=== PATIENT | male | born 1960 | race Caucasian/White ===

== ENCOUNTER 2022-05-12 11:45 | Emergency (ER) | payer MEDICARE, SELFPAY ==
[2022-05-12] VITALS (7 sets, daily range): BP systolic 129–141; BP diastolic 80–86; PULSE 95–99; RESP 16–25; TEMP 35.9–36.1; O2SAT 97–100; BMI 17.3
--- NOTE | 2022-05-12 12:10 | VDLE_ITS ---
Reason For Study: Swelling RIGHT LEFT GSV is normal. GSV is normal. CFV is compressible, spontaneous, continuous, CFV is compressible, spontaneous, continuous, competent and demonstrates augmentation. competent and demonstrates augmentation. FV is compressible, spontaneous, continuous, FV is compressible, spontaneous, continuous, competent and demonstrates augmentation. competent and demonstrates augmentation. POP V is compressible, spontaneous, POP V is compressible, spontaneous, continuous, competent and demonstrates continuous, competent and demonstrates augmentation. augmentation. T/P Trunk is compressible. T/P Trunk is compressible. PTV is compressible. PTV is compressible. RT PerV is compressible. RT PerV is compressible. Procedure This is a venous duplex using B-mode, color flow and spectral Doppler. Exam performed portable in ED. The exam was diagnostic. A preliminary report was called and/or faxed to Dr. Scott. VL/Venous Duplex US - Jordin Extrem Interpretation Summary Deep veins of the bilateral lower extremities are patent and compressible segme ntally. There is no evidence of bilateral lower extremity deep vein thrombosis. The bilateral great saphenous veins appear patent and compressible segmentally. Ordering Physician: Eliane Scott Referring Physician: N/A Performed By: James Camarena, RVT
--- NOTE | 2022-05-12 12:13 | EX.ED.DYSGE1 ---
HPI History of Present Illness Chief Complaint: Edema Informant: patient and family Narrative Narrative: Patient is a 62-year-old male presenting from the [facility] for evaluation of leg edema. Patient has a complex medical history including combined systolic and diastolic heart failure, anemia, hypertension, Pancoast tumor of the upper lobe, urinary retention and respiratory failure on 2 L of oxygen. Patient had an extended hospital stay in March at the facility and then went to hospice. He seemed to actually be improving and was discharged from hospice to the [facility] for rehab. This was 1 week ago. For the past 2 to 3 days patient has had increased swelling of his feet. 2 days ago his legs were cold. He has developed a sore in his right heel that seems to be a pressure wound as well as a sore now at the base of the left great toe. Yesterday his left leg was tender and hot and his right leg was cool as ice. The nurse noticed the swelling today and thought he should come to the ER. Patient notes his coloring of his legs in the coolness is much better today. Patient was on Eliquis at 1 point but has had a lot of medication changes since transitioning off hospice and does not think he is on it anymore. Patient denies any breathing changes. He notes he has some mucus and a cough which is not significantly changed. He does feel that he needs puff of his albuterol inhaler. Patient does not wear any CPAP or BiPAP. No other complaints at this time. MAR reviewed from patient's nursing facility does not show any anticoagulation/Eliquis. [facility] Medical History Anemia Anxiety Cachexia COPD (chronic obstructive pulmonary disease) Hypertension Irregular heart rhythm Respiratory failure Transient ischemic attack Home Medications apixaban 5 mg tablet (Eliquis) 5 mg PO BID #60 tabs 05/12/22 [Rx Last Taken Unknown] furosemide 20 mg tablet (Lasix) 20 mg PO DAILY #7 tabs 05/12/22 [Rx Last Taken Unknown] prednisone 10 mg tablets in a dose pack 10 mg PO DAILY #48 tabs 05/12/22 [Rx Last Taken Unknown] Allergy/AdvReac Type Severity Reaction Status Date / Time Iodinated Contrast Media [CT] Allergy Shortness Verified 05/12/22 11:48 of breath Surgical History no surgical history Social History Smoking Status: Former smoker ROS ROS ED Constitutional Constitutional ED: Denies chills or fever(s) Eyes Eyes: Denies change in vision ENT ENT ED: Denies sore throat Cardiovascular Cardiovascular: Denies chest pain or palpitations Respiratory/Chest Respiratory/Chest: Reports cough; Denies dyspnea Gastrointestinal Gastrointestinal: Denies abdominal pain, nausea or vomiting Genitourinary Genitourinary ED: Reports other Details: ambrose catheter in place secondary to urinary retention Musculoskeletal Musculoskeletal: Denies arthralgias or myalgias Integumentary Reports other Details: wound to right heal and left great toe Neurologic Neurologic: Reports other Details: chronic weakness of the right hand ; Denies headache(s) or paresthesias Hematologic/Lymphatic Hematologic/Lymphatic: Denies easy bleeding or easy bruising EXAM Physical Exam Const Vital Signs: 05/12/22 11:48 05/12/22 11:52 05/12/22 11:59 Temperature 96.7 F L 96.7 F L Temperature Source Temporal Temporal Pulse Rate 98 98 Respiratory Rate 25 H 25 H Respiratory Effort Short of Breath Respiratory Pattern Normal Blood Pressure 141/86 H 141/86 H Blood Pressure Mean 104 104 Pulse Ox 100 99 Oxygen Delivery Method Nasal Cannula Nasal Cannula Oxygen Flow Rate (L/min) 3 2 05/12/22 12:26 05/12/22 13:00 05/12/22 13:00 Temperature 97.0 F L Temperature Source Temporal Pulse Rate 97 98 98 Respiratory Rate 22 H 21 H 20 H Respiratory Effort Respiratory Pattern Blood Pressure 129/80 H 129/80 H Blood Pressure Mean 96 96 Pulse Ox 97 97 Oxygen Delivery Method Nasal Cannula Nasal Cannula Oxygen Flow Rate (L/min) 2 2 05/12/22 14:00 05/12/22 14:30 05/12/22 15:37 Temperature 96.9 F L Temperature Source Temporal Pulse Rate 99 97 95 Respiratory Rate 22 H 21 H 16 Respiratory Effort Respiratory Pattern Blood Pressure 130/81 H 130/81 H 134/81 H Blood Pressure Mean 97 97 Pulse Ox 100 98 98 Oxygen Delivery Method Nasal Cannula Nasal Cannula Oxygen Flow Rate (L/min) 2 2 Positive cachectic General Appearance ED: cachectic and NAD Nutritional Appearance: cachectic HEENT Reports moist mucous membranes Eyes PERRL and EOMs intact bilaterally Neck supple and no JVD Chest Wall inspection of chest normal and palpation of chest normal Resp Resp Narrative: Mild tachypnea, wet cough. Coarse breath sounds Cardio regular rate, regular rhythm and no murmurs GI normal to inspection, nondistended, normoactive bowel sounds and non-tender Narrative: Ambrose catheter in place Extremity Extremity Narrative: 2+ bilateral pitting edema up to the distal shins 2+ bilateral DP and PT pulses. Brisk capillary refill of the toes. 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 Generalized weakness but no other focal deficits appreciated. Motor Exam: general weakness Psych mental status grossly normal Skin Skin Narrative: No mottling or cyanosis to the bilateral lower extremities. Mild plethora and warmth of the bilateral lower extremities. There is approximately 2 cm pressure sore to the right dependent heel with no associated drainage, bleeding or ulceration. There is a 1 cm slightly irregular black/ecchymotic wound to the base of the left great toe with again no ulceration, break in the skin or drainage. No surrounding erythema. No associated lymphangitic streaking. MDM MDM MDM Narrative Medical decision making narrative: Patient is evaluated for bilateral leg swelling. Apparently over the past few days has had intermittent episodes of coolness and warmth in his legs. He has great distal pulses however he does have pedal edema. I do not think he has an acute arterial occlusion. He does have what appears to be a pressure wound on his right heel as well as another questionably pressure wound versus vasculitis of the left great toe. I did review patient's discharge summary and some of his work-up from his hospitalization at [facility]. 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 I also reviewed patient's echocardiogram from 04/01 and patient had an improving echocardiogram that showed an EF of 40 to 45% with abnormal normal anterior septum, mid and apical inferior septum and apex abnormalities. Patient was seen by vascular and had normal ABIs. Patient was on Eliquis for history of DVT. I spoke with Dr. Kilgore, vascular surgery on-call. He felt that likely if anything this is microvascular and need follow-up with either rheumatology or hematology/oncology. [place] that restarting the patient on Eliquis for his history of DVT as well as restarting steroids would be prudent. He states his patient would not be a vascular candidate he would not intervene on the patient. While in the ER patient is given DuoNeb with improvement of his cough and lung sounds. Patient does not have any acute DVT but does have high venous return consistent with fluid overload. His BNP is elevated as well. Given that he is at his baseline O2 with no increased work of breathing or acute respiratory symptoms I do not think he requires admission for IV diuresis. Patient would like to go home. He is not having any chest pain. His EKG does show significant changes however based on documentation from clinic staying at [facility] it does not appear to be significantly changed. He is not having any chest pain and is high since he troponin is at the upper limit of normal. His kidney function is normal as well as his electrolytes and I will start diuresis for the patient for his lower extremity edema. Case is discussed with on-call physician for half-way, Dr. Briones who is agreeable with this plan. Patient is given prescription for Eliquis, prednisone taper and Lasix. Is amenable to being discharged back as his goal is to be rehabbed and does not want to be back in the hospital. Is given return precautions. Discharged home in stable condition. Lab Data Attestation: I reviewed the patient's lab results. Labs: Laboratory Results - last 24 hr 05/12/22 05/12/22 05/12/22 11:55 11:55 11:55 WBC 11.2 H RBC 4.22 L Hgb 12.8 L Hct 40.4 MCV 95.7 H MCH 30.3 MCHC 31.7 L RDW Std Deviation 61.7 H RDW Coeff of Maverick 18.2 H Plt Count 191 MPV 10.0 Immature Gran % (Auto) 4.400 H Neut % (Auto) 89.0 H Lymph % (Auto) 3.0 L [place] % (Auto) 3.0 Eos % (Auto) 0.0 Baso % (Auto) 0.6 Absolute Neuts (auto) 9.9 H Absolute Lymphs (auto) 0.34 L Nucleated RBC % 0.4 Differential Comment Toxic Granulation 1+ Stomatocytes 1+ Sodium 139 Potassium 4.0 Chloride 101 Carbon Dioxide 34.0 H Anion Gap 4 L BUN 38 H Creatinine 0.49 L Estim Creat Clear Calc 114.60 Est GFR (MDRD) Af Amer 222 Est GFR (MDRD) Non-Af 183 BUN/Creatinine Ratio 78.0 H Glucose 146 H Calcium 9.2 Troponin I High Sens B-Natriuretic Peptide 201.0 H 05/12/22 11:55 WBC RBC Hgb Hct MCV MCH MCHC RDW Std Deviation RDW Coeff of Maverick Plt Count MPV Immature Gran % (Auto) Neut % (Auto) Lymph % (Auto) [place] % (Auto) Eos % (Auto) Baso % (Auto) Absolute Neuts (auto) Absolute Lymphs (auto) Nucleated RBC % Differential Comment Toxic Granulation Stomatocytes Sodium Potassium Chloride Carbon Dioxide Anion Gap BUN Creatinine Estim Creat Clear Calc Est GFR (MDRD) Af Amer Est GFR (MDRD) Non-Af BUN/Creatinine Ratio Glucose Calcium Troponin I High Sens 78 B-Natriuretic Peptide Radiography Chest X-Ray - ED: 1 View, Read by ED Physician, Read by Radiologist and - (Prominence of central pulmonary arteries) Diagnostic Testing: Clinical Impression(s) from Imaging Studies Venous Doppler Study 05/12/22 12:10 Interpretation Summary Deep veins of the bilateral lower extremities are patent and compressible segmentally. There is no evidence of bilateral lower extremity deep vein thrombosis. The bilateral great saphenous veins appear patent and compressible segmentally. Ordering Physician: Eliane Scott Referring Physician: N/A Performed By: James Camarena, RVT Chest X-Ray 05/12/22 12:15 IMPRESSION: The lungs are clear. Prominence of the central pulmonary arteries. Electronically Signed: Pedro Cummins MD at 12:27 EST , Rhythm Strip Rhythm Strip: Sinus Rhythm Rate: 96 Ectopy: None EKG Initial EKG: Attestation: I personally reviewed and interpreted this EKG as follows: Interpretation: Sinus Rhythm Comments: Normal sinus rhythm at a rate of 96 bpm Normal axis Which is criteria for LVH T wave inversions in 2, 1, aVL, V3 through V6 with no reciprocal changes Prior EKG tracings: available for review Prior: Changed Discharge Plan Triage Chief Complaint: Edema ED Provider: Eliane Scott Dx/Rx/DC Orders Clinical Impression: Peripheral edema, Fluid overload, Vasculitis, History of deep vein thrombosis Instructions: ED Peripheral Edema, Bilateral Prescriptions: New Eliquis 5 mg tablet 5 mg PO BID Qty: 60 0RF prednisone 10 mg tablets,dose pack 10 mg PO DAILY Qty: 48 0RF furosemide [Lasix] 20 mg tablet 20 mg PO DAILY Qty: 7 0RF Primary Care Provider: Maurizio Olivas Referrals: Ronal Infante DPM [Med Staff - Active Staff] - 2 Days for wound check Maurizio Castillo MD [Med Staff - Active Staff] - As soon as possible Maurizio Olivas MD [Primary Care Provider] - Activity Restrictions/Additional Instructions: Replaced knee back on Eliquis. You do not have a blood clot today. You are being put on a taper course of prednisone for potential vasculitis in your legs. You have also been referred to podiatry for your feet. I have given you referral for cardiology to follow-up with and I have started you on Lasix as I suspect you have a component of fluid overload causing your leg swelling. Please follow-up with your certified court/medical interpreter/oncologist for further recommendations. Disposition Disposition: Home, Self Care
--- NOTE | 2022-05-12 12:15 | RAD_ITS ---
STUDY: X-RAY CHEST REASON FOR EXAM: Male, 62 years old. Increasing swelling to the lower extremities. TECHNIQUE: Single AP portable view of the chest. COMPARISON: None. FINDINGS: EKG electrodes are seen. Mildly elevated right hemidiaphragm. There is no demonstrated pleural abnormality. Normal size heart. Normal mediastinum and george. There is prominence of the pulmonary hilar arteries without peripheral pulmonary vascular congestion, suggesting pulmonary hypertension. Normal visualized aortic arch and descending thoracic aorta. Normal visualized thoracic spine. Normal visualized ribs, clavicles, and shoulders. There is no demonstrated abnormality of the visualized soft tissue structures of the upper abdomen. RAD/Chest 1 View (Portable) IMPRESSION: The lungs are clear. Prominence of the central pulmonary arteries. Electronically Signed: Pedro Cummins MD at 12:27 [facility] ,
[2022-05-12] MEDS: Ipratropium/Albuterol Sulfate 3 ML AMPUL.NEB INHALATION (12:21)
[2022-05-12 12:36] LABS: Absolute Lymphocyte Count 0.34 X10^3/uL (0.83-4.51); Absolute Neutrophil Count 9.9 X10^3/uL (2.0-7.7); Basophil# 0.07 X10^3/uL; Basophil% 0.6 % (0-1); Hematocrit 40.4 % (40-54); Hemoglobin 12.8 g/dL (13.0-16.5); Lymphocyte # 0.34 X10^3/ul (0.83-4.51); Mean Corp Hgb Conc 31.7 g/dL (32-36); Mean Corpuscular Hgb 30.3 pg (27.0-32.0); Mean Corpuscular Volume 95.7 fL (80-94); Monocyte# 0.34 X10^3/uL; NRBC Flagged by Analyzer 0.4 % (0-5); Neutrophil # 9.94 X10^3/uL (2.7-7.7); POSITIVE DIFFERENTIAL YES; Platelet Count 191 K/mm3 (150-450); RBC Distribution Width CV 18.2 % (11.6-14.6); RBC Distribution Width SD 61.7 fl (35.1-43.9); Red Blood Count 4.22 M/mm3 (4.6-6.2); White Blood Count 11.2 K/mm3 (4.4-11.0)
[2022-05-12 12:44] LABS: Anion Gap 4 (5-15); BUN 38 mg/dL (7-18); Calcium,Total 9.2 mg/dL (8.5-10.1); Chloride 101 mmol/L (98-107); Creatinine, Serum 0.49 mg/dL (0.70-1.30); EST Glomerular Filtration Rate 183 mL/min (>60); Est Glom Filt Rate - Afr Amer 222 mL/min (>60); Glucose 146 mg/dL (74-106); Sodium Level 139 mmol/L (136-145)
[2022-05-12 12:50] LABS: Differential Indicated SCAN CRITERIA MET
[2022-05-12 12:59] LABS: Stomatocyte 1+; Toxic Granulation 1+
[2022-05-12 13:43] LABS: Troponin-I HS 78 pg/mL (3.0-78.0)
[2022-05-12] MEDS: Furosemide 20 MG/2 ML VIAL IV (15:35)
--- NOTE | 2022-05-12 16:58 | ED.RN ---
PHONE REPORT TO THE AVENUE WAS ATTEMPTED BUT NO ANSWER BY THE NURSE THERE @[id number]
--- NOTE | 2022-05-12 17:46 | ED.RN ---
NURSE TO NURSE REPORT GIVEN TO RN AT THE AVENUE.
== END 2022-05-12 17:47 | disposition home or self-care (01) ==
PROVIDERS: Emergency Provider Emergency Medicine; PCP Family Medicine; Visit Provider Emergency Medicine
DX: M79.89 Other specified soft tissue disorders (principal); I50.40 Unspecified combined systolic (congestive) and diastolic (congestive) heart failure; I77.6 Arteritis, unspecified; Z87.891 Personal history of nicotine dependence; Z86.718 Personal history of other venous thrombosis and embolism
CPT/HCPCS: 71045; 80048; 83880; 84484; 85025; 93005; 93970; 94640; 96374; 99285; A4216; J1940

== ENCOUNTER 2022-05-14 16:28 | Inpatient (IN) | payer MEDICARE, SELFPAY ==
[2022-05-14] VITALS (12 sets, daily range): BP systolic 148–162; BP diastolic 88–130; PULSE 106–131; RESP 17–30; TEMP 36.2–36.9; O2SAT 91–100; BMI 16.1; BMI 15.7
--- NOTE | 2022-05-14 17:01 | EKG12_ITS ---
Test Reason : SOB Blood Pressure : / mmHG Vent. Rate : 130 BPM Atrial Rate : 130 BPM P-R Int : 148 ms QRS Dur : 076 ms QT Int : 388 ms P-R-T Axes : 072 -23 088 degrees QTc Int : 571 ms Sinus tachycardia T wave abnormality, consider lateral ischemia Abnormal ECG Confirmed by BONNIE JOHN, YUMI ([id number]), electronic news gathering editor JENNI NOVAK ([id number]) on 05/17/2022 9:22:17 AM Referred By: HARRISON/DAVID Confirmed By:YUMI NICOLE MD
--- NOTE | 2022-05-14 17:02 | ED.VIS.DYS ---
HPI History of Present Illness Chief Complaint: Shortness of Breath Informant: patient and family Narrative Narrative: History is from patient and family. However, family seems to have a much more accurate history. This patient arrives today due to dyspnea. He has had problems with dyspnea off and on for a while. He has COPD, emphysema, congestive heart failure, Pancoast tumor/lung cancer. He states he was here the other day for some swelling in the legs. They started him on Lasix and the swelling is a little bit better. It is certainly not worse but it is slightly better. He states the breathing is little worse today. He is breathing fast and his heart rates up. He does have a cough over the last 2 days that is now developed. He is not really able to get any sputum up but he feels like he is coughing some. He is not sure if he is wheezing. He is not having chest pain. He is on and is taking his Eliquis twice a day. He is also on Lasix and prednisone. This patient first denied any blood clots but then stated he may have had in his right arm in the past. He is also had the Pancoast tumor diagnosed about 7 years ago. It was evidently lung in origin. He had multiple radiation and chemotherapy treatments. 6 years after initial diagnosis or about a year ago he had repeat treatments. He has now been on Keytruda for about 70 some treatments. It is nonoperable. Patient was up at [facility] and then transferred to [facility]. This happened in March. He evidently arrested and coded twice and was intubated. He had to be reintubated. He slowly improved slightly. But he was on hospice care from the end of March until about the 18th of this month. He was transferred from hospice care to the [facility] for rehab. He is off hospice care now. He is also on 2 L of oxygen all the time. He is satting well on that now. [facility] Medical History (Updated 05/14/22 @ 19:[address] Georgina Alexander MD) Anemia Anxiety and depression Chronic respiratory failure with hypoxia Combined systolic and diastolic heart failure COPD (chronic obstructive pulmonary disease) Former tobacco use History of deep vein thrombosis HLD (hyperlipidemia) Hypertension Irregular heart rhythm Pancoast tumor of right lung Severe protein-calorie malnutrition Transient ischemic attack Home Medications apixaban 5 mg tablet (Eliquis) 5 mg PO BID #60 tabs 05/12/22 [Rx Last Taken Unknown] furosemide 20 mg tablet (Lasix) 20 mg PO DAILY #7 tabs 05/12/22 [Rx Last Taken Unknown] prednisone 10 mg tablets in a dose pack 10 mg PO DAILY #48 tabs 05/12/22 [Rx Last Taken Unknown] Allergy/AdvReac Type Severity Reaction Status Date / Time Iodinated Contrast Media [CT] Allergy Shortness Verified 05/12/22 11:48 of breath Family History (Updated 05/14/22 @ 20:[address] Georgina Alexander MD) Mother Anxiety and depression Hypertension Father Hypertension Surgical History (Updated 05/14/22 @ 20:[address] Georgina Alexander MD) No history of previous surgery Social History (Updated 05/14/22 @ 20:[address] Georgina Alexander MD) housing: long-term Smoking Status: Former smoker how long ago did patient quit smoking: Quit with prolonged recent hospitalization 03/2022, smoked teen 1 ppd. alcohol intake: never substance use type: does not use ROS ROS ED Constitutional Constitutional ED: Denies chills or fever(s) Eyes Eyes: Denies change in vision ENT ENT ED: Denies rhinorrhea or sore throat Cardiovascular Cardiovascular: Reports racing heartbeat; Denies chest pain or palpitations Respiratory/Chest Respiratory/Chest: Reports cough, dyspnea and sputum Gastrointestinal Gastrointestinal: Denies nausea or vomiting Genitourinary Genitourinary ED: Denies dysuria Musculoskeletal Musculoskeletal: Denies myalgias Integumentary Denies rash Neurologic Neurologic: Denies headache(s) Psychiatric Psychiatric: Reports anxiety Endocrine Endocrinology: Denies polydipsia or polyuria Hematologic/Lymphatic Hematologic/Lymphatic: Reports easy bleeding and easy bruising; Denies lymphadenopathy Allergic/Immunologic Allergic/Immunologic ED: Reports other Details: Patient does report significant reaction to iodinated contrast agents. He states he almost the second time he got this. He gets significant dyspnea. ; Denies urticaria EXAM Physical Exam Narrative Exam Narrative: Patient is awake and alert. He is breathing quickly but is not in acute distress. He also has increased heart rate. He is obviously cachectic. But he is oriented and not at all sleepy or lethargic HEENT: Very cachectic. No noted pallor. Mucous membranes are reasonably moist Eyes show no pallor Neck possible some mild JVD. Very thin. No meningismus. Lungs decreased breath sounds throughout. It is hard to say if there is actual wheeze or just decreased breath sounds. I do not hear definitive rales or rhonchi either but he is overall quiet. There is no pain with a deep breath. He does have a slightly moist sounding cough that is intermittent. Heart is tachycardic. It does appear to be regular though on the monitor. I saw a rare PVC. Abdomen: Soft and nontender Extremities patient does have some duskiness of his fingers and toes. Evidently this is not new though this has been going on for quite some time and is thought to be secondary to microvascular disease. Mild peripheral edema but family states it might be a little better than a couple days ago. He has no CVA or back tenderness. Very prominent spinal processes and ribs going along with his cachectic Neuro: Patient is awake alert. He is a reasonably good informant but not for dates times and details of the events since March because he was intubated or in the hospital for much of that. Const Vital Signs: 05/14/22 16:30 05/14/22 16:36 05/14/22 16:36 Temperature 97.7 F L 97.1 F L Temperature Source Temporal Temporal Pulse Rate 131 H 127 H 127 H Respiratory Rate 23 H 29 H 23 H Respiratory Effort Respiratory Pattern Blood Pressure 148/88 H 148/88 H Blood Pressure Mean 108 108 Pulse Ox 100 100 Oxygen Delivery Method Room Air Nasal Cannula Nasal Cannula Oxygen Flow Rate (L/min) 2 2 05/14/22 16:37 05/14/22 17:29 05/14/22 18:00 Temperature Temperature Source Pulse Rate 120 H 114 H Respiratory Rate 30 H 19 H Respiratory Effort Short of Breath Labored Respiratory Pattern Tachypnea Blood Pressure 150/94 H Blood Pressure Mean 112 Pulse Ox 100 Oxygen Delivery Method Nasal Cannula Nasal Cannula Oxygen Flow Rate (L/min) 2 2 05/14/22 18:00 05/14/22 19:00 05/14/22 19:00 Temperature 97.3 F L 98.3 F Temperature Source Temporal Temporal Pulse Rate 113 H 106 H 107 H Respiratory Rate 23 H 17 22 H Respiratory Effort Respiratory Pattern Blood Pressure 150/94 H 152/107 H 152/107 H Blood Pressure Mean 112 122 122 Pulse Ox 100 94 94 Oxygen Delivery Method Nasal Cannula Nasal Cannula Room Air Oxygen Flow Rate (L/min) 2 05/14/22 19:38 Temperature 98.2 F Temperature Source Temporal Pulse Rate 118 H Respiratory Rate 18 Respiratory Effort Respiratory Pattern Blood Pressure 162/130 H Blood Pressure Mean 140 Pulse Ox 97 Oxygen Delivery Method Nasal Cannula Oxygen Flow Rate (L/min) MDM MDM MDM Narrative Medical decision making narrative: My independent interpretation of the patient's single view chest x-ray shows scarring up of the right upper base consistent with his Pancoast tumor but no acute infiltrative processes noted. Similar reading by radiology. Blood work does not show elevated white count. Hemoglobin is good. Platelets are normal. Electrolytes show no marked abnormality. Bicarb is 33 which is similar to past. He does have an elevated BUN to creatinine ratio. I do not want to give him a large amount of fluids because he has a history of CHF and is on Lasix. Troponin is up at 100. His EKG does not show acute ST elevation changes. This troponin elevation is likely due to a combination of tachycardia and hypoxia. Lactate was elevated at 4. Again, this is likely due to increased heart rate and decreased oxygen level. He is not hypotensive. I do not think he needs IV fluids for sepsis as he has CHF and this may hurt him. BNP was up at 350 but this is not a marked elevation considering the overall picture. Patient's rechecked and he is doing better with breathing treatments. He is actually moving a fair amount more air now. His heart rate has gone from the 130s and even 140s down to about 10 5-1 10. His respiratory rate is down a little bit. He is now satting okay on room air and not needing oxygen. I will give him another breathing treatment. He requested something for anxiety as he does have a lot of this. I will give him a very small dose of Ativan as we discussed that this can also suppress respirations a little bit but it may also help calm his breathing. I am not can to do a CTA at this time. He is on Eliquis and he has a significant allergy to contrast. With his continued slight increase heart rate, respiratory rate, elevated lactate and complex medical history I think he will require hospitalization. I have hospitalist on page. I did discuss the case specifically with the hospitalist. Patient will be admitted. Lab Data Attestation: I reviewed the patient's lab results. Labs: Laboratory Results - last 24 hr 05/14/22 05/14/2205/14/23 16:35 16:35 16:35 WBC 10.1 RBC 5.04 Hgb 15.2 Hct 47.7 MCV 94.6 H MCH 30.2 MCHC 31.9 L RDW Std Deviation 61.1 H RDW Coeff of Maverick 18.4 H Plt Count 217 MPV 10.2 Immature Gran % (Auto) 3.700 H Neut % (Auto) 88.8 H Lymph % (Auto) 4.[address] % (Auto) 2.5 Eos % (Auto) 0.0 Baso % (Auto) 0.8 Absolute Neuts (auto) 9.0 H Absolute Lymphs (auto) 0.42 L Nucleated RBC % 0.6 Differential Comment SCANNED Sodium 140 Potassium 3.8 Chloride 96 L Carbon Dioxide 33.0 H Anion Gap 11 BUN 41 H Creatinine 0.80 Estim Creat Clear Calc 65.44 Est GFR (MDRD) Af Amer 125 Est GFR (MDRD) Non-Af 103 BUN/Creatinine Ratio 51.2 H Glucose 266 H Lactic Acid Cancelled Calcium 9.4 Phosphorus Magnesium Troponin I High Sens 100 H B-Natriuretic Peptide Procalcitonin 05/14/22 05/14/22 05/14/22 16:35 17:40 17:40 WBC RBC Hgb Hct MCV MCH MCHC RDW Std Deviation RDW Coeff of Maverick Plt Count MPV Immature Gran % (Auto) Neut % (Auto) Lymph % (Auto) [place] % (Auto) Eos % (Auto) Baso % (Auto) Absolute Neuts (auto) Absolute Lymphs (auto) Nucleated RBC % Differential Comment Sodium Potassium Chloride Carbon Dioxide Anion Gap BUN Creatinine Estim Creat Clear Calc Est GFR (MDRD) Af Amer Est GFR (MDRD) Non-Af BUN/Creatinine Ratio Glucose Lactic Acid Calcium Phosphorus 3.3 Magnesium 2.3 Troponin I High Sens B-Natriuretic Peptide 353.1 H Procalcitonin 0.12 H 05/14/22 18:15 WBC RBC Hgb Hct MCV MCH MCHC RDW Std Deviation RDW Coeff of Maverick Plt Count MPV Immature Gran % (Auto) Neut % (Auto) Lymph % (Auto) [place] % (Auto) Eos % (Auto) Baso % (Auto) Absolute Neuts (auto) Absolute Lymphs (auto) Nucleated RBC % Differential Comment Sodium Potassium Chloride Carbon Dioxide Anion Gap BUN Creatinine Estim Creat Clear Calc Est GFR (MDRD) Af Amer Est GFR (MDRD) Non-Af BUN/Creatinine Ratio Glucose Lactic Acid 4.0 H* Calcium Phosphorus Magnesium Troponin I High Sens B-Natriuretic Peptide Procalcitonin Radiography Diagnostic Testing: Clinical Impression(s) from Imaging Studies Chest X-Ray 05/14/22 17:43 IMPRESSION: No radiographic evidence of acute cardiopulmonary disease. Electronically Signed: Pinky Ortega MD at 18:02 EST Reading Location ID and State: [id number] / Tel , Service support , EKG Initial EKG: Comments: My independent interpretation of the patient's EKG done for tachycardia and dyspnea shows sinus rhythm with tachycardic rate at 130. There are diffuse ST and T wave changes and variable baseline but no convincing evidence of infarct or ischemia. Baseline variation in rate does limit evaluation. HI interval and QRS duration are normal. QTC is long. Critical Care Time Critical Care Time: Yes Critical care time (excluding procedures): 30-74 minutes, Discussing w/Patient &/or Family/Technical Professional, Discussing w/Consultants, Arranging Admission or Transfer, Performing Direct Patient Care at Bedside and - (35 Minutes, Patient tachypneic, tachycardic, hypoxic off oxygen, improved with multiple treatments and recheck) Discharge Plan Dx/Rx/DC Orders Clinical Impression: Acute exacerbation of chronic obstructive pulmonary disease, Tachycardia, Tachypnea, Hypoxia, Elevated troponin Disposition Disposition: Acute Care Hospital [facility] Discharge Date/Time: 05/14/22 20:57
[2022-05-14] MEDS: MethylPREDNISolone 125 MG/2 ML Vial IV (17:12)
[2022-05-14] MEDS: Ipratropium/Albuterol Sulfate 3 ML AMPUL.NEB INHALATION ×2 (17:27→19:28)
[2022-05-14 17:32] LABS: Absolute Lymphocyte Count 0.42 X10^3/uL (0.83-4.51); Basophil# 0.08 X10^3/uL; Basophil% 0.8 % (0-1); Hematocrit 47.7 % (40-54); Hemoglobin 15.2 g/dL (13.0-16.5); Lymphocyte # 0.42 X10^3/ul (0.83-4.51); Lymphocyte % 4.2 % (19-41); Mean Corp Hgb Conc 31.9 g/dL (32-36); Mean Corpuscular Hgb 30.2 pg (27.0-32.0); Mean Corpuscular Volume 94.6 fL (80-94); Mean Platelet Vol. 10.2 fl (6.2-12.0); Monocyte# 0.25 X10^3/uL; Monocyte% 2.5 % (0-10); NRBC Flagged by Analyzer 0.6 % (0-5); Neutrophil # 8.96 X10^3/uL (2.7-7.7); Neutrophil % 88.8 % (47-70); POSITIVE DIFFERENTIAL YES; Platelet Count 217 K/mm3 (150-450); RBC Distribution Width CV 18.4 % (11.6-14.6); RBC Distribution Width SD 61.1 fl (35.1-43.9); Red Blood Count 5.04 M/mm3 (4.6-6.2); White Blood Count 10.1 K/mm3 (4.4-11.0)
[2022-05-14 17:33] LABS: Differential Indicated SCAN CRITERIA MET
--- NOTE | 2022-05-14 17:43 | RAD_ITS ---
INDICATION: SOB EXAMINATION/TECHNIQUE: X-RAY - XR Chest 1 View COMPARISON: 05/12/2022. FINDINGS: LINES/DEVICES: None. LUNGS: No consolidation, edema or effusion. No pneumothorax. MEDIASTINUM AND CARDIOVASCULAR STRUCTURES: Cardiac silhouette not enlarged. Central airways and mediastinal contour are unremarkable. BONES AND SOFT TISSUES: Unremarkable. RAD/Chest 1 View (Portable) IMPRESSION: No radiographic evidence of acute cardiopulmonary disease. Electronically Signed: Pinky Ortega MD at 18:02 EST Reading Location ID and State: [id number] / Tel , Service support ,
[2022-05-14 17:50] LABS: Differential Comment SCANNED
[2022-05-14 17:56] LABS: Anion Gap 11 (5-15); BUN 41 mg/dL (7-18); BUN/Creat Ratio 51.2 RATIO (10-20); Calcium,Total 9.4 mg/dL (8.5-10.1); Chloride 96 mmol/L (98-107); EST Glomerular Filtration Rate 103 mL/min (>60); Est Glom Filt Rate - Afr Amer 125 mL/min (>60); Estimated Creatinine Clearance 65.44 ml/min; Glucose 266 mg/dL (74-106); Potassium 3.8 mmol/L (3.5-5.1); Sodium Level 140 mmol/L (136-145); Troponin-I HS 100 pg/mL (3.0-78.0)
[2022-05-14 18:01] LABS: BNP,B-Type NATRIURETIC PEPTIDE 353.1 pg/mL (0-100)
[2022-05-14] MEDS: Albuterol 2.5 MG/3 ML VIAL.NEB. INHALATION (18:20)
--- NOTE | 2022-05-14 19:22 | CPS ---
[1820] x1 Albuterol given to pt. Pre-Tx: HR = 109, RR = 26 with diminished, coarse breath sounds. Post-Tx: HR = 111, RR = 24 with cleared up, coarse breath sounds.
--- NOTE | 2022-05-14 19:43 | CPS ---
[1928] x1 Duoneb given to pt. Pre-Tx: HR = 113, RR = 28 with coarse and diminished breath sounds. Post-Tx: HR = 114, RR = 24 with clearer breath sounds and rhonchi through out.
[2022-05-14] MEDS: LORazepam 2 MG/ML Syringe 0.25 MG IV (19:44)
[2022-05-14 20:12] LABS: Magnesium 2.3 mg/dL (1.6-2.6); Phosphorus 3.3 mg/dL (2.5-4.9)
[2022-05-14 20:21] LABS: Procalcitonin 0.12 ng/mL (0.00-0.09)
--- NOTE | 2022-05-14 21:01 | PCM.HP.STD ---
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 ED on 05/14/22 with history of progressively worsening dyspnea over this has been an issue ongoing for some time with worsened dyspnea over the last 24 hours with increased cough without ability to bring up sputum without fever or chills. In the emergency room he does report that his lower extremity swelling has improved since his recent ED evaluation with ongoing oral Lasix administration. He does state that part of the reason he transition off hospice as he was improving enough that they wanted to have therapy performed but this was not allowed when he was in an inpatient hospice setting which prompted the transfer to a skilled facility. Work-up in the ED included T97.7, heart rate initially 131, respiratory rate 23, percent on 2 L nasal cannula with most recent vital signs T98.3, heart rate 107, BP 152/107, respiratory rate 22, 94% on 2 L nasal cannula, CBC with WC 10.1, he 115.2, platelet 217 with left shift and lymphopenia, BMP with chloride 96, carbon oxide 33, BUN/creat 41/0.8, glucose 266, lactic acid 4, troponin initial 100, BNP 353.1, chest x-ray with no acute cardiopulmonary findings, blood culture x2 pending per ED, rapid SARS COVID and influenza antigens negative. In the ED patient administered Solu-Medrol 125 mg IV x1, Ativan 0.25 mg IV x1, DuoNeb therapies as well as albuterol.s [facility] Medical History (Updated 05/14/22 @ 19:[address] Georgina Alexander MD) Anemia Anxiety and depression Chronic respiratory failure with hypoxia Combined systolic and diastolic heart failure COPD (chronic obstructive pulmonary disease) Former tobacco use History of deep vein thrombosis HLD (hyperlipidemia) Hypertension Irregular heart rhythm Pancoast tumor of right lung Severe protein-calorie malnutrition Transient ischemic attack Home Medications apixaban 5 mg tablet (Eliquis) 5 mg PO BID #60 tabs 05/12/22 [Rx Last Taken Unknown] furosemide 20 mg tablet (Lasix) 20 mg PO DAILY #7 tabs 05/12/22 [Rx Last Taken Unknown] prednisone 10 mg tablets in a dose pack 10 mg PO DAILY #48 tabs 05/12/22 [Rx Last Taken Unknown] Allergy/AdvReac Type Severity Reaction Status Date / Time Iodinated Contrast Media [CT] Allergy Shortness Verified 05/12/22 11:48 of breath Family History (Updated 05/14/22 @ 20:[address] Georgina Alexander MD) Mother Anxiety and depression Hypertension Father Hypertension Surgical History (Updated 05/14/22 @ 20:[address] Georgina Alexander MD) No history of previous surgery Social History (Updated 05/14/22 @ 20:[address] Georgina Alexander MD) housing: skilled nursing Smoking Status: Former smoker how long ago did patient quit smoking: Quit with prolonged recent hospitalization 03/2022, smoked teen 1 ppd. alcohol intake: never substance use type: does not use ROS ROS Narrative Admission Review of Systems: CONSTITUTIONAL: No weight loss, fever, chills, + weakness or fatigue. HEENT: + Mild congestion. Eyes: No visual loss, blurred vision, double vision or yellow sclerae. Ears, Nose, Throat: No hearing loss, sneezing, runny nose or sore throat. SKIN: No rash or itching, lesions, wounds. CARDIOVASCULAR: + Edema. No chest pain, chest pressure or chest discomfort, palpitations, orthopnea, syncopal events. RESPIRATORY: + shortness of breath, cough with difficulty bringing up his sputum, wheezing, No hemoptysis. GASTROINTESTINAL:+ anorexia, No nausea, vomiting or diarrhea, abdominal pain, melena, BRBPR. GENITOURINARY: + Chronic urinary retention. No dysuria, frequency, urgency. NEUROLOGICAL: No headache, dizziness, syncope, paralysis, ataxia, numbness or tingling in the extremities, focal weakness, change in bowel or bladder control, seizure. MUSCULOSKELETAL: + muscle, back pain, joint pain or stiffness. HEMATOLOGIC: + anemia, bleeding or bruising. LYMPHATICS: No enlarged nodes. No history of splenectomy. PSYCHIATRIC: No history of depression or anxiety. ENDOCRINOLOGIC: No reports of sweating, cold or heat intolerance. No polyuria or polydipsia. ALLERGIES: No history of asthma, hives, eczema or rhinitis. Vital Signs Vital Signs Vital Signs: 05/14/22 16:30 05/14/22 16:36 05/14/22 16:36 Temperature 97.7 F L 97.1 F L Temperature Source Temporal Temporal Pulse Rate 131 H 127 H 127 H Respiratory Rate 23 H 29 H 23 H Respiratory Effort Respiratory Pattern Blood Pressure 148/88 H 148/88 H Blood Pressure Mean 108 108 Pulse Ox 100 100 Oxygen Delivery Method Room Air Nasal Cannula Nasal Cannula Oxygen Flow Rate (L/min) 2 2 05/14/22 16:37 05/14/22 17:29 05/14/22 18:00 Temperature Temperature Source Pulse Rate 120 H 114 H Respiratory Rate 30 H 19 H Respiratory Effort Short of Breath Labored Respiratory Pattern Tachypnea Blood Pressure 150/94 H Blood Pressure Mean 112 Pulse Ox 100 Oxygen Delivery Method Nasal Cannula Nasal Cannula Oxygen Flow Rate (L/min) 2 2 05/14/22 18:00 05/14/22 19:00 05/14/22 19:00 Temperature 97.3 F L 98.3 F Temperature Source Temporal Temporal Pulse Rate 113 H 106 H 107 H Respiratory Rate 23 H 17 22 H Respiratory Effort Respiratory Pattern Blood Pressure 150/94 H 152/107 H 152/107 H Blood Pressure Mean 112 122 122 Pulse Ox 100 94 94 Oxygen Delivery Method Nasal Cannula Nasal Cannula Room Air Oxygen Flow Rate (L/min) 2 Weight Weight: 109 lb 5.588 oz Body Mass Index (BMI) 16.1 Physical Exam Narrative Physical Examination: General: Awake, alert, oriented x 3 and cooperative, seated upright in ED bed, frail, fatigued appearing, no evidence of any respiratory distress, improved since initial ED arrival. Skin: Normal color, normal turgor, no icterus, no cyanosis except significant very staged ecchymoses, bilateral lower extremity peripheral venous stasis skin changes. HEENT: AT/NC, EOMI, PERRLA, moderately dry MM, no carotid bruits or JVD noted. Lungs: Severely diminished, greater bases, occasional end expiratory wheeze, no evidence of any distress, mildly increased respiratory rate but improving from prior, no rales or rhonchi. Heart: Mildly tachycardic with regular rhythm; no gallop, rub audible. Abdomen: Soft, cachectic appearing, NTTP, ND, distant normal BS, no HSM. Extremities: No cyanosis, no clubbing, bilateral pedal 1+ pitting edema to distal peter. Neurological: Patient awake, alert, oriented as noted cognitive function intact; pupils equally reactive to light and accommodation, cranial nerves II-XII grossly normal, moving all 4 extremities, no focal deficits, strength moderately to severely global decrease secondary to acute presentation and underlying comorbidities. Psychiatric: Affect appears flat, fatigued, respiratory status improved, no acute evidence of depressive or anxiety feelings. Results Lab / Micro Data Result Diagrams: 05/14/22 16:35 05/14/22 16:35 Labs: Laboratory Results - last 24 hr 05/14/22 16:35: WBC 10.1, RBC 5.04, Hgb 15.2, Hct 47.7, MCV 94.6 H, MCH 30.2, MCHC 31.9 L, RDW Std Deviation 61.1 H, RDW Coeff of Maverick 18.4 H, Plt Count 217, MPV 10.2, Immature Gran % (Auto) 3.700 H, Neut % (Auto) 88.8 H, Lymph % (Auto) 4.2 L, [place] % (Auto) 2.5, Eos % (Auto) 0.0, Baso % (Auto) 0.8, Absolute Neuts (auto) 9.0 H, Absolute Lymphs (auto) 0.42 L, Nucleated RBC % 0.6, Differential Comment SCANNED 05/14/22 16:35: Sodium 140, Potassium 3.8, Chloride 96 L, Carbon Dioxide 33.0 H, Anion Gap 11, BUN 41 H, Creatinine 0.80, Estim Creat Clear Calc 65.44, Est GFR (MDRD) Af Amer 125, Est GFR (MDRD) Non-Af 103, BUN/Creatinine Ratio 51.2 H, Glucose 266 H, Calcium 9.4, Troponin I High Sens 100 H 05/14/22 16:35: Lactic Acid Cancelled 05/14/22 16:35: B-Natriuretic Peptide 353.1 H 05/14/22 18:15: Lactic Acid 4.0 H* Micro: Microbiology 05/14/22 17:15 Nasal Secretion SARS-CoV-2 & FLU Antigen (Rapid) - Final Radiology Impression Chest X-Ray 05/14/22 17:43 IMPRESSION: No radiographic evidence of acute cardiopulmonary disease. Electronically Signed: Pinky Ortega MD at 18:02 EST Reading Location ID and State: [id number] / Tel , Service support , Assessment & Plan Assessment/Plan (1) Acute exacerbation of chronic obstructive pulmonary disease: PLAN: Plan The patient is a 62 y/o M w/ PMHx: Combined Diastolic/Systolic CHF, Pancoast Tumor Lung (reported right upper lobe) on Ketruda non-operable unclear specific type s/p prior chemotherapy and radiation, Chronic urinary retention, Chronic anemia, Severe protein calorie malnutrition, COPD w/ Chronic Hypoxic Respiratory Failure (2L NC), Anxiety and Dpression, HTN, Hx TIA, Hx VTE on eliquis, Former tobacco use who presents to the [facility] ED on 05/14/22 with history of progressively worsening dyspnea over this has been an issue ongoing for some time with worsened dyspnea over the last 24 hours with increased cough without ability to bring up sputum without fever or chills. #1. Acute on Chronic Hypoxic Respiratory Failure secondary to Acute on chronic COPD exacerbation w/ associated lactic acidosis suspected primarily secondary to hypoxemia: Will admit to [facility], maintain on oxygen with wean as tolerated to home oxygen supplementation, continue ATC duonebs, PRN albuterol, IV methylprednisolone, HOB, IS parameters, will obtain sputum cultures, respiratory full panel and procalcitonin. Will hold on immediate abx therapy but reasses if results more concerning for bacterial etiology. #2. Hyperglycemia, possibly stress response: Admission glucose 266, no diabetic history but patient is on chronic steroids, will obtain hemoglobin A1c and if appropriate transition to ADA diet with Accu-Cheks with insulin sliding scale and request nutrition consultation for education and teaching. #3. Chronic Diastolic/Systolic CHF: From review of ED evaluation 05/10/2022 patient with prolonged hospital stay at in March with transition to hospice at that time however he recently supposedly improved and was discharged from hospice but had significant increased orthopnea, edema, weight gain with ED evaluation with initiation of increased Lasix regimen, will continue Eliquis, Lasix regimen with snug Darren wraps and lower extremity elevations with pulse dose Lasix as needed, not on beta-jeny nor DARREN inhibitor/ARB, nor on statin therapy, defer to outpatient and again patient had been on hospice, unclear if transitioning back given possible decline. #4. Pancoast Tumor Lung (reported right upper lobe): Patient remains on Ketruda, noted to be non-operable unclear specific type but location as noted, s/p prior chemotherapy and radiation and from history suspect recurrent worsening disease over the last year, encourage continued Oncology follow-up. Mag, Phos pending. #5. Chronic anemia, appears macrocytic: Admission hemoglobin 15.2 however 05/12/22 with hemoglobin 12.8 at that time with MCV 95.7, not on any supplements, will obtain iron panel, ferritin, vitamin B12 and folic acid in addition to guaiac to be cautious given chronic anticoagulation status. #6. Hypertension: Continue home regimen including Lasix with hold parameters as needed, PRN hydralazine. #7. Severe protein calorie malnutrition: Evidenced by significantly reduced BMI, muscle and fat loss, nutrition consulted. #8. History TIA: We will continue patient home Eliquis, hypertensive regimen as noted, investigating diabetic potential as noted with hyperglycemia, not on statin therapy, defer to outpatient. #9. Anxiety and depression: Not on any regimen, encourage continued outpatient follow-up and evaluation. #10. History of VTE: We will continue patient on chronic Eliquis regimen. #11. DVT prophylaxis: SCDs, Eliquis. #12. CODE status: Patient JEFE is his mother and brother who are present and living will is currently in place. Discussed CODE status at length including difference between FULL code, DNR-CCA and DNR-CC status. Following discussions about the differences in these status, requested DNR-CCA with allowance of short term intubation only. Advanced Care Planning Face to Face Time: 17 minutes. Admission Evaluation Time spent evaluating chart, patient history, patient evaluation, care planning and discussion with specialists: 75 minutes. Charges/Coding Visit Charges Inpatient E&M: 17351 Init Hosp L3 Procedures Hospitalists Procedures: 34957 Advncd Care Plan 30 Min
--- NOTE | 2022-05-14 21:30 | NURSING ---
emergency documentation effective since 05/14/2022 @5733
[2022-05-14 22:16] LABS: Reflex Lactate? Y
[2022-05-14 22:30] LABS: Allen Test Positive; Base Excess 8 mmol/L (-2 to +2); Bicarbonate 31.1 mmol/L (22-26); Blood Gas Specimen Type ART; O2 Delivery Device Cannula; PO2 78 mmHG (75-100); SITE L Radial; SO2 96 % (95-99); Total Carbon Dioxide 32 mmol/L; pCO2 40.6 mmHg (35-45); pH 7.49 (7.35-7.45)
[2022-05-14 23:05] LABS: Lactic Acid 3.3 mmol/L (0.4-1.9)
[2022-05-14] MEDS: 0.9% Saline Lock 10 ML Syringe IV (23:14)
[2022-05-15] VITALS (27 sets, daily range): BP systolic 107–181; BP diastolic 86–129; PULSE 99–128; RESP 16–29; TEMP 36.4–36.9; O2SAT 95–100
[2022-05-15 00:26] LABS: Troponin-I HS 83 pg/mL (3.0-78.0)
[2022-05-15 01:00] LABS: Bedside Glucose 135 mg/dL (74-106)
[2022-05-15 02:41] LABS: Troponin-I HS 81 pg/mL (3.0-78.0)
[2022-05-15] MEDS: Ipratropium/Albuterol Sulfate 3 ML AMPUL.NEB INHALATION ×5 (02:44→19:16)
[2022-05-15] MEDS: 0.9% Saline Lock 10 ML Syringe IV ×3 (05:41→20:59)
[2022-05-15 05:48] LABS: Absolute Lymphocyte Count 0.37 X10^3/uL (0.83-4.51); Absolute Neutrophil Count 11.1 X10^3/uL (2.0-7.7); Basophil# 0.06 X10^3/uL; Basophil% 0.5 % (0-1); Hematocrit 45.1 % (40-54); Hemoglobin 15.1 g/dL (13.0-16.5); Lymphocyte # 0.37 X10^3/ul (0.83-4.51); Lymphocyte % 3.1 % (19-41); Mean Corp Hgb Conc 33.5 g/dL (32-36); Mean Corpuscular Hgb 30.9 pg (27.0-32.0); Mean Corpuscular Volume 92.4 fL (80-94); Mean Platelet Vol. 9.7 fl (6.2-12.0); Monocyte# 0.19 X10^3/uL; Monocyte% 1.6 % (0-10); NRBC Flagged by Analyzer 0.3 % (0-5); Neutrophil # 11.09 X10^3/uL (2.7-7.7); Neutrophil % 92.9 % (47-70); POSITIVE DIFFERENTIAL YES; Platelet Count 178 K/mm3 (150-450); RBC Distribution Width CV 18.5 % (11.6-14.6); RBC Distribution Width SD 58.4 fl (35.1-43.9); Red Blood Count 4.88 M/mm3 (4.6-6.2); White Blood Count 11.9 K/mm3 (4.4-11.0)
[2022-05-15 05:51] LABS: Differential Indicated SCAN CRITERIA MET
[2022-05-15 06:08] LABS: Differential Comment SCANNED
[2022-05-15 06:19] LABS: ALB/GLOB Ratio 0.7 RATIO (0.9-2.4); AST(SGOT) 20 U/L (15-37); Alanine Aminotransfer ALT/SGPT 53 U/L (16-61); Albumin, Serum 2.8 g/dL (3.2-5.0); Alkaline Phosphatase 117 U/L (45-117); Anion Gap 10 (5-15); BUN 36 mg/dL (7-18); BUN/Creat Ratio 64.3 RATIO (10-20); Calcium,Total 9.2 mg/dL (8.5-10.1); Chloride 98 mmol/L (98-107); Creatinine, Serum 0.56 mg/dL (0.70-1.30); EST Glomerular Filtration Rate 156 mL/min (>60); Est Glom Filt Rate - Afr Amer 189 mL/min (>60); Estimated Creatinine Clearance 90.85 ml/min; Globulin 3.9 g/dL (2.2-4.2); Glucose 153 mg/dL (74-106); Potassium 4.1 mmol/L (3.5-5.1); Protein, Total 6.7 g/dL (6.4-8.2); Sodium Level 140 mmol/L (136-145); Troponin-I HS 75 pg/mL (3.0-78.0)
[2022-05-15 06:33] LABS: Ferritin 504 ng/mL (26-388); Iron 103 ug/dL (65-175); Iron Binding Capacity,Total 393 ug/dL (250-450); PERCENT IRON SATURATION 26.2 % (15.0-55.0)
[2022-05-15] MEDS: hydrALAZINE 20 MG/ML Vial 10 MG IV ×2 (06:51→18:25)
[2022-05-15 07:17] LABS: Hemoglobin A1c 6.4 % (3.8-5.6)
--- NOTE | 2022-05-15 07:50 | PCM.PN.HOSP ---
Subjective Subjective Patient is a 62-year-old gentleman admitted with shortness of breath and assessment of COPD with acute exacerbation made admitted to a monitored bed for further management Objective Data Objective Data Vital Signs: Vital Signs Temp Pulse Resp BP Pulse Ox O2 Del Method O2 Flow Rate 97.9 F 116 H 25 H 160/89 H 97 Room Air 2 05/15/22 05:00 05/15/22 07:32 05/15/22 07:32 05/15/22 07:32 05/15/22 07:32 05/15/22 07:32 05/15/22 00:25 Oxygen Flow Rate (L/min) 2 Oxygen Delivery Method Room Air Weight: 48.2 kg Body Mass Index (BMI) 15.7 Intake & Output: Intake and Output for Last 24 Hours 05/13/22 05/14/22 05/15/22 23:59 23:59 23:59 Output Total 500 / 500 150 / 150 Balance -500 / -500 -150 / -150 Lab / Micro Data Result Diagrams: 05/15/22 05:25 05/15/22 05:25 Labs: Laboratory Results - last 24 hr 05/14/22 16:35: WBC 10.1, RBC 5.04, Hgb 15.2, Hct 47.7, MCV 94.6 H, MCH 30.2, MCHC 31.9 L, RDW Std Deviation 61.1 H, RDW Coeff of Maverick 18.4 H, Plt Count 217, MPV 10.2, Immature Gran % (Auto) 3.700 H, Neut % (Auto) 88.8 H, Lymph % (Auto) 4.2 L, [place] % (Auto) 2.5, Eos % (Auto) 0.0, Baso % (Auto) 0.8, Absolute Neuts (auto) 9.0 H, Absolute Lymphs (auto) 0.42 L, Nucleated RBC % 0.6, Differential Comment SCANNED 05/14/22 16:35: Sodium 140, Potassium 3.8, Chloride 96 L, Carbon Dioxide 33.0 H, Anion Gap 11, BUN 41 H, Creatinine 0.80, Estim Creat Clear Calc 65.44, Est GFR (MDRD) Af Amer 125, Est GFR (MDRD) Non-Af 103, BUN/Creatinine Ratio 51.2 H, Glucose 266 H, Calcium 9.4, Troponin I High Sens 100 H 05/14/22 16:35: Lactic Acid Cancelled 05/14/22 16:35: B-Natriuretic Peptide 353.1 H 05/14/22 17:40: Phosphorus 3.3, Magnesium 2.3 05/14/22 17:40: Procalcitonin 0.12 H 05/14/22 18:15: Lactic Acid 4.0 H* 05/14/22 21:33: POC Glucose 135 H 05/14/22 22:26: Lactic Acid 3.3 H* 05/14/22 23:50: Troponin I High Sens 83 H 05/15/22 02:18: Troponin I High Sens 81 H 05/15/22 05:25: WBC 11.9 H, RBC 4.88, Hgb 15.1, Hct 45.1, MCV 92.4, MCH 30.9, MCHC 33.5 D, RDW Std Deviation 58.4 H, RDW Coeff of Maverick 18.5 H, Plt Count 178, MPV 9.7, Immature Gran % (Auto) 1.900 H, Neut % (Auto) 92.9 H, Lymph % (Auto) 3.1 L, [place] % (Auto) 1.6, Eos % (Auto) 0.0, Baso % (Auto) 0.5, Absolute Neuts (auto) 11.1 H, Absolute Lymphs (auto) 0.37 L, Nucleated RBC % 0.3, Differential Comment SCANNED 05/15/22 05:25: Sodium 140, Potassium 4.1, Chloride 98, Carbon Dioxide 32.0, Anion Gap 10, BUN 36 H, Creatinine 0.56 L, Estim Creat Clear Calc 90.85, Est GFR (MDRD) Af Amer 189, Est GFR (MDRD) Non-Af 156, BUN/Creatinine Ratio 64.3 H, Glucose 153 H, Calcium 9.2, Total Bilirubin 0.40, AST 20, ALT 53, Alkaline Phosphatase 117, Troponin I High Sens 75, Total Protein 6.7, Albumin 2.8 L, Globulin 3.9, Albumin/Globulin Ratio 0.7 L 05/15/22 05:25: Hemoglobin A1c 6.4 H 05/15/22 05:25: Iron 103, TIBC 393, Iron Saturation 26.2, Ferritin 504 H, Folate 17.80 Micro: Microbiology 05/14/22 20:10 Mucosa - Nasopharyngeal Respiratory Panel (PCR) - Final 05/14/22 17:15 Nasal Secretion SARS-CoV-2 & FLU Antigen (Rapid) - Final ABG Data ABG results: ABG 05/14/22 22:26 Specimen Type ART Sample Site L Radial pH 7.49 H Bicarbonate Actual 31.1 H Total CO2 32 Base Excess 8 H O2 Saturation 96 ABG pCO2 40.6 ABG pO2 78 Johnnie Test Positive O2 Delivery Device Cannula Liter Flow 2.0 Radiography Diagnostic Testing: Radiology Impression Chest X-Ray 05/14/22 17:43 IMPRESSION: No radiographic evidence of acute cardiopulmonary disease. Electronically Signed: Pinky Ortega MD at 18:02 EST Reading Location ID and State: [id number] / Tel , Service support , Physical Exam Narrative GENERAL: cooperative but frail looking HEENT: Atraumatic; normocephalic EYES; Anicteric, Normal Conjunctiva NECK; supple, normal thyroid, RESPIRATORY: Diminished to auscultation CARDIOVASCULAR: Regular S1 S2, GI: soft, normoactive bowel sounds, : No Renal angle tenderness; EXTREMITIES: No edema, no clubbing, MUSCULOSKELETAL: no muscle wasting NEURO: Awake; no lateralizing signs. SKIN: No Rash PSYCH; Flat affect Assessment & Plan Assessment/Plan (1) Acute exacerbation of chronic obstructive pulmonary disease: PLAN: Plan Patient is a 62-year-old gentleman admitted with progressive shortness of breath 1. Acute acute hypoxia ? Superimposed on chronic respiratory failure multifactorial including COPD with acute exacerbation as well as patient underlying Pancoast lung tumor 8 CHF with acute exacerbation. Placed on supplemental oxygen admitted to a monitored bed with treatment of underlying condition 2. COPD with acute exacerbation - Patient started on bronchodilator treatment, systemic steroid as well as antibiotic therapy. Patient placed on oxygen titrated to keep saturation greater than 90. 3. Acute on chronic congestive heart failure with preserved ejection fraction ? Patient is on diuretics, in addition to fluid restriction and strict input and output as well as daily weight 4. Right upper lobe Pancoast tumor ? Patient is apparently completed treatment with chemo and is currently on Keytruda. 5. Anemia - Secondary to chronic disorder monitoring H&H and transfuse if patient becomes symptomatic or hemoglobin falls below 7 6. History of VTE ? Patient is on Eliquis did continue 7. Hypertension - Blood pressure controlled, home medications continued with dose adjustment as needed 8. Severe protein calorie . This is secondary to patient underlying lung malignancy patient severe protein calorie malnutrition evidenced by low energy level significant weight loss low BMI of 15. Consult has been placed to nutrition 9. Depression with anxiety ? Did continue patient SSRI 10. DVT prophylaxis ? Patient already on Eliquis Time spent in the patient's overall evaluation,decision-making process, review of diagnostic data, adjustment of management, discussion with other providers, nursing nursing and ancillary staff involved in patient's care documentation, 52 minutes Charges/Coding Visit Charges Inpatient E&M: 58518 [facility] Hosp L3
[2022-05-15] MEDS: Furosemide 20 MG Tablet PO (09:25)
[2022-05-15] MEDS: Acetaminophen 325 MG Tablet 650 MG PO ×2 (09:25→14:32)
[2022-05-15] MEDS: APIXABAN 5 MG TABLET PO ×2 (09:25→20:58)
[2022-05-15] MEDS: oxyCODONE 5 MG Tablet 20 MG PO ×3 (09:43→22:17)
[2022-05-15] MEDS: NYSTATIN 500,000 UNIT/5 ML UDC 500000 UNIT PO ×3 (13:11→20:58)
[2022-05-15] MEDS: Pantoprazole Sodium 40 MG Tablet PO (13:11)
[2022-05-15] MEDS: Losartan Potassium 25 MG Tablet PO (13:11)
[2022-05-15] MEDS: Carvedilol 3.125 MG TABLET PO ×2 (13:11→22:17)
--- NOTE | 2022-05-15 13:21 | CASEMGMT ---
MARCEL Note MARCEL met with patient. He indicated that his discharge plan is to [facility]. Cassie SCHAFFER
--- NOTE | 2022-05-15 14:18 | CASEMGMT ---
Addendum entered by Cassie Gonzalez 05/15/22 14:48: Green sheet on the chart. Original Note: MARCEL Note MARCEL called [facility] and spoke to outpatient receptionist who put this insurance writer to Krissy on A unit. MARCEL asked if patient could return to [facility] under his insurance. Krissy said that she had no idea. MARCEL asked if there was anyone that she could call to see if patient could return and Krissy said that there is nobody in the building she can ask and she thinks it's the part timer who handles this but she is unsure. MARCEL spoke to Dank electric sign assembler. Possible discharge of patient this weekend. MARCEL spoke to Ritu. Ritu from [facility] said that patient can return anytime. He does not need precert. Cassie SCHAFFER
[2022-05-15] MEDS: Escitalopram Oxalate 20 MG Tablet PO (14:32)
[2022-05-15] MEDS: DULoxetine Hcl 60 MG Capsule PO (14:32)
[2022-05-15] MEDS: Juven (unflavored) Packet 1 PACKET PO (16:00)
[2022-05-15] MEDS: Ensure Plus High Protein 120 ML LIQUID PO (16:02)
[2022-05-15] MEDS: Senna/Docusate Sodium 1 Tablet 2 TABLET PO (18:53)
--- NOTE | 2022-05-15 19:55 | PCM.HOSP.N ---
Hospitalist Note Ongoing tachycardia, suspect related with his breathing treatments. Will transition to scheduled budesonide with PRN albuterol only. Lopressor x 1 now and continue his home coreg.
[2022-05-15] MEDS: Metoprolol Tartrate 5 MG/5 ML Vial IV (20:59)
[2022-05-15] MEDS: Calcium Carbonate 500 MG Tablet 1000 MG PO (20:59)
[2022-05-16 03:40] VITALS: BP 160/82; PULSE 100; RESP 18; TEMP 36.8; O2SAT 96
[2022-05-16] MEDS: 0.9% Saline Lock 10 ML Syringe IV ×2 (05:32→20:50)
[2022-05-16] MEDS: oxyCODONE 5 MG Tablet 20 MG PO ×3 (05:32→20:50)
[2022-05-16] MEDS: Budesonide Respules 0.5 MG/2 ML AMPUL.NEB. INHALATION ×2 (06:34→19:42)
[2022-05-16 06:35] VITALS: PULSE 95; RESP 18; O2SAT 98
[2022-05-16 09:40] VITALS: BP 162/94; PULSE 116; RESP 16; TEMP 36.7; O2SAT 97
[2022-05-16] MEDS: Escitalopram Oxalate 20 MG Tablet PO (10:01)
[2022-05-16] MEDS: APIXABAN 5 MG TABLET PO ×2 (10:01→20:50)
[2022-05-16] MEDS: NYSTATIN 500,000 UNIT/5 ML UDC 500000 UNIT PO ×4 (10:01→20:49)
[2022-05-16] MEDS: DULoxetine Hcl 60 MG Capsule PO (10:01)
[2022-05-16] MEDS: Juven (unflavored) Packet 1 PACKET PO ×2 (10:01→17:47)
[2022-05-16] MEDS: Losartan Potassium 25 MG Tablet PO ×2 (10:01→13:18)
[2022-05-16] MEDS: Aspirin 81 MG TAB.CHEW PO (10:01)
[2022-05-16] MEDS: Furosemide 20 MG Tablet PO (10:01)
[2022-05-16] MEDS: Carvedilol 3.125 MG TABLET PO ×2 (10:01→13:18)
[2022-05-16] MEDS: Pantoprazole Sodium 40 MG Tablet PO (10:02)
--- NOTE | 2022-05-16 10:07 | PCM.PN.HOSP ---
Subjective Subjective Patient seen continues to improve clinically. Currently off oxygen heart rate however remains elevated at 116, blood pressure 162/94 Objective Data Objective Data Vital Signs: Vital Signs Temp Pulse Resp BP Pulse Ox O2 Del Method O2 Flow Rate 98.0 F 116 H 16 162/94 H 97 Room Air 2 05/16/22 09:40 05/16/22 09:40 05/16/22 09:40 05/16/22 09:40 05/16/22 09:40 05/16/22 09:40 05/15/22 22:00 Oxygen Flow Rate (L/min) 2 Oxygen Delivery Method Room Air Weight: 49.3 kg Body Mass Index (BMI) 15.7 Intake & Output: Intake and Output for Last 24 Hours 05/14/22 05/15/22 05/16/22 23:59 23:59 23:59 Intake Total 100 / 100 200 / 200 Output Total 500 / 500 1550 / 1550 350 / 350 Balance -500 / -500 -1450 / -1450 -150 / -150 Medical Nutrition Assessment Dietitian: Malnutrition Criteria Met Start: 05/15/22 13:52 Freq: Status: Active Protocol: Document 05/15/22 13:52 RMA (Rec: 05/15/22 13:52 RMA [id number]) Nutrition Malnutrition Evidence of Malnutrition Exists Yes Malnutrition (severe): Chronic Evidenced By Suboptimal Energy Intake ( Severe),Weight Loss (Severe), Physical Changes (Severe) Intake Problem Inadequate Energy Intake Etiology related to increased energy expenditure and inadequate oral intake Signs/Symptoms as evidenced by unintentional wt loss greater than 20% x 1 year Status Active Problem Clinical Problem Chronic Disease or Condition Related Malnutrition Etiology Severe protein-calorie malnutrition in the context of chronic disease and debility related to increased energy expenditure and inadequate energy intake Signs/Symptoms as evidenced by 21% wt loss x 1 year, BMI 15.9, severe muscle/fat loss and wasting in the clavicle, arms, orbital region and PO meeting less than 50% estimated nutrition needs x 6 months Status Active Problem Recommendation Dietitian Recommendations/Changes Continue liberalized regular diet and monitor need to restrict salt/sodium due to edema/CHF. Will add 120 ml chocolate ensure plus high protein TID w / meals. Will add Parrish BID w/ medpass for wound healing. Will add 120 ml ensure plus high protein TID w/ medpass. Additional ONS as pt willing. Lab / Micro Data Result Diagrams: 05/15/22 05:25 05/15/22 05:25 Micro: Microbiology 05/14/22 20:10 Mucosa - Nasopharyngeal Respiratory Panel (PCR) - Final 05/14/22 17:15 Nasal Secretion SARS-CoV-2 & FLU Antigen (Rapid) - Final Physical Exam Narrative GENERAL: cooperative but frail looking HEENT: Atraumatic; normocephalic EYES; Anicteric, Normal Conjunctiva NECK; supple, normal thyroid, RESPIRATORY: Diminished to auscultation CARDIOVASCULAR: Regular S1 S2, GI: soft, normoactive bowel sounds, : No Renal angle tenderness; EXTREMITIES: No edema, no clubbing, MUSCULOSKELETAL: no muscle wasting NEURO: Awake; no lateralizing signs. SKIN: No Rash PSYCH; Flat affect Assessment & Plan Assessment/Plan (1) Acute exacerbation of chronic obstructive pulmonary disease: PLAN: Plan Patient is a 62-year-old gentleman admitted with progressive shortness of breath 1. Acute acute hypoxia ? Superimposed on chronic respiratory failure multifactorial including COPD with acute exacerbation as well as patient underlying Pancoast lung tumor 8 CHF with acute exacerbation. Placed on supplemental oxygen admitted to a monitored bed with treatment of underlying condition ? 05/16/2022; patient breathing status markedly improved currently off oxygen 2. COPD with acute exacerbation - Patient started on bronchodilator treatment, systemic steroid as well as antibiotic therapy. Patient placed on oxygen titrated to keep saturation greater than 90. 3. Acute on chronic congestive heart failure with preserved ejection fraction ? Patient is on diuretics, in addition to fluid restriction and strict input and output as well as daily weight 4. Right upper lobe Pancoast tumor ? Patient is apparently completed treatment with chemo and is currently on Keytruda. 5. Anemia - Secondary to chronic disorder monitoring H&H and transfuse if patient becomes symptomatic or hemoglobin falls below 7 6. History of VTE ? Patient is on Eliquis did continue 7. Hypertension - Blood pressure controlled, home medications continued with dose adjustment as needed ? 05/16/2022; blood pressure control not optimal subsequent adjustment made to patient antihypertensive regimen 8. Severe protein calorie . This is secondary to patient underlying lung malignancy patient severe protein calorie malnutrition evidenced by low energy level significant weight loss low BMI of 15. Consult has been placed to nutrition 9. Depression with anxiety ? Did continue patient SSRI 10. DVT prophylaxis ? Patient already on Eliquis Time spent in the patient's overall evaluation,decision-making process, review of diagnostic data, adjustment of management, discussion with other providers, nursing nursing and ancillary staff involved in patient's care documentation, 38 minutes Charges/Coding Visit Charges Inpatient E&M: 90910 Subs Hosp L2
[2022-05-16 15:00] VITALS: BP 139/71; PULSE 103; RESP 18; TEMP 36.9; O2SAT 99
[2022-05-16 19:43] VITALS: PULSE 105; RESP 20
[2022-05-16] MEDS: Carvedilol 6.25 MG Tablet PO (20:50)
[2022-05-16 21:00] VITALS: BP 130/70; PULSE 108; RESP 18; TEMP 36.4; O2SAT 94
[2022-05-17] MEDS: oxyCODONE 5 MG Tablet 20 MG PO ×3 (02:57→17:50)
[2022-05-17 03:00] VITALS: BP 140/78; PULSE 98; RESP 18; TEMP 36.6; O2SAT 94
[2022-05-17] MEDS: 0.9% Saline Lock 10 ML Syringe IV (05:25)
[2022-05-17 06:53] VITALS: PULSE 100; RESP 20; O2SAT 99
[2022-05-17] MEDS: Budesonide Respules 0.5 MG/2 ML AMPUL.NEB. INHALATION (06:53)
[2022-05-17 07:53] LABS: Vitamin B12 1138 pg/mL (211-911)
--- NOTE | 2022-05-17 08:25 | PCM.PN.HOSP ---
Subjective Subjective f/u aecopd Breathing improving, still very weak and would like to go back [facility] on discharge Objective Data Objective Data Vital Signs: Vital Signs Temp Pulse Resp BP Pulse Ox O2 Del Method O2 Flow Rate 98 F 98 18 140/78 H 94 Nasal Cannula 2 05/17/22 03:00 05/17/22 03:00 05/17/22 03:00 05/17/22 03:00 05/17/22 03:00 05/17/22 03:00 05/17/22 03:00 Oxygen Flow Rate (L/min) 2 Oxygen Delivery Method Nasal Cannula Weight: 49.3 kg Body Mass Index (BMI) 15.7 Intake & Output: Intake and Output for Last 24 Hours 05/15/22 05/16/22 05/17/22 23:59 23:59 23:59 Intake Total 100 / 100 200 / 620 420 / 420 Output Total 1550 / 1550 1325 / 1925 1100 / 1100 Balance -1450 / -1450 -1125 / -1305 -680 / -680 Medical Nutrition Assessment Dietitian: Malnutrition Criteria Met Start: 05/15/22 13:52 Freq: Status: Active Protocol: Document 05/15/22 13:52 RMA (Rec: 05/15/22 13:52 RMA [id number]) Nutrition Malnutrition Evidence of Malnutrition Exists Yes Malnutrition (severe): Chronic Evidenced By Suboptimal Energy Intake ( Severe),Weight Loss (Severe), Physical Changes (Severe) Intake Problem Inadequate Energy Intake Etiology related to increased energy expenditure and inadequate oral intake Signs/Symptoms as evidenced by unintentional wt loss greater than 20% x 1 year Status Active Problem Clinical Problem Chronic Disease or Condition Related Malnutrition Etiology Severe protein-calorie malnutrition in the context of chronic disease and debility related to increased energy expenditure and inadequate energy intake Signs/Symptoms as evidenced by 21% wt loss x 1 year, BMI 15.9, severe muscle/fat loss and wasting in the clavicle, arms, orbital region and PO meeting less than 50% estimated nutrition needs x 6 months Status Active Problem Recommendation Dietitian Recommendations/Changes Continue liberalized regular diet and monitor need to restrict salt/sodium due to edema/CHF. Will add 120 ml chocolate ensure plus high protein TID w / meals. Will add Parrish BID w/ medpass for wound healing. Will add 120 ml ensure plus high protein TID w/ medpass. Additional ONS as pt willing. Lab / Micro Data Result Diagrams: 05/15/22 05:25 05/15/22 05:25 Labs: Laboratory Results - last 24 hr 05/15/22 05:25: Vitamin B12 1138 H Micro: Microbiology 05/16/22 09:32 Stool Stool Occult Blood (RAKESH) - Final Occult Blood Positive 05/14/22 20:10 Mucosa - Nasopharyngeal Respiratory Panel (PCR) - Final 05/14/22 17:15 Nasal Secretion SARS-CoV-2 & FLU Antigen (Rapid) - Final Physical Exam Const alert and no apparent distress Constitutional Narrative: Oriented HEENT normocephalic and head/scalp atraumatic Eyes Eyes Narrative: EOM grossly intact, anicteric Neck supple Resp normal respiratory effort and clear to auscultation bilaterally Cardio regular rate and regular rhythm GI soft to palpation, non-tender and non-distended Extremity Extremity Narrative: No edema appreciated Neuro moves all extremities Neuro Narrative: No overt focal deficits appreciated Psych Psych Narrative: Cooperative Assessment & Plan Assessment/Plan (1) Acute exacerbation of chronic obstructive pulmonary disease: PLAN: Plan #Acute hypoxia secondary to a COPD as well as underlying Pancoast lung tumor Currently off oxygen, markedly improved On bronchodilators and antibiotics Will de-escalate steroids to p.o. #Positive FOBT Ferritin somewhat elevated likely due to chronic disease Iron level and iron panel otherwise negative Hemoglobin presently stable but does have a positive FOBT and history of cancer We will consult GI for further input Given no overt bleeding with history of VTE and current cancer we will cautiously continue Eliquis Continue PPI at this time #Chronic congestive heart failure with preserved ejection fraction On diuretics Fluid restriction #Right upper lobe Pancoast tumor Status post chemo On Keytruda #History of VTE On Eliquis #Hypertension Medications further adjusted Per elevated troponin 100 when he came in down trended to 75 Do not suspect NSTEMI this was likely due to to underlying illness #Severe protein calorie This is secondary to patient underlying lung malignancy patient severe protein calorie malnutrition evidenced by low energy level significant weight loss low BMI of 15.? Consult has been placed to nutrition #DVT ppx: Susana Ocasio MD
[2022-05-17 09:02] VITALS: BP 153/81; PULSE 109; RESP 18; TEMP 36.6; O2SAT 94
[2022-05-17] MEDS: Juven (unflavored) Packet 1 PACKET PO ×2 (09:18→17:50)
[2022-05-17] MEDS: NYSTATIN 500,000 UNIT/5 ML UDC 500000 UNIT PO ×3 (09:18→17:50)
[2022-05-17] MEDS: Furosemide 20 MG Tablet PO (09:19)
[2022-05-17] MEDS: Escitalopram Oxalate 20 MG Tablet PO (09:19)
[2022-05-17] MEDS: Losartan Potassium 50 MG Tablet PO (09:19)
[2022-05-17] MEDS: Aspirin 81 MG TAB.CHEW PO (09:19)
[2022-05-17] MEDS: Pantoprazole Sodium 40 MG Tablet PO (09:19)
[2022-05-17] MEDS: DULoxetine Hcl 60 MG Capsule PO (09:19)
[2022-05-17] MEDS: APIXABAN 5 MG TABLET PO (09:19)
[2022-05-17] MEDS: Carvedilol 6.25 MG Tablet PO (09:24)
--- NOTE | 2022-05-17 11:54 | CASEMGMT ---
Social Work SW spoke w/Ritu at [facility]. Pt had been on hospice when he was at [facility], and has straight Medicare. His insurance switches to [employer] 05/19 so if he does not discharge until 05/19 or after will need a new precert. If he goes today or tomorrow, no precert is needed. As per physician, pt can return to [facility] today. She spoke w/pt, he does not want to return on hospice. SW let Ritu at [facility] know, and updates sent via [facility]. SW will continue to follow. ROSE Benedict
[2022-05-17 12:01] VITALS: O2SAT 94
[2022-05-17] MEDS: Ensure Plus High Protein 120 ML LIQUID PO (12:21)
--- NOTE | 2022-05-17 13:40 | WOUNDNOTE ---
wound photo: right heel
--- NOTE | 2022-05-17 13:41 | WOUNDNOTE ---
wound photo: left heel
--- NOTE | 2022-05-17 13:42 | WOUNDNOTE ---
skin photo: bilateral lower legs
--- NOTE | 2022-05-17 13:42 | WOUNDNOTE ---
wound photo: right elbow
--- NOTE | 2022-05-17 13:43 | WOUNDNOTE ---
wound photo: left elbow
--- NOTE | 2022-05-17 13:44 | WOUNDNOTE ---
wound photo: left great toe
[2022-05-17 15:00] VITALS: BP 132/83; PULSE 110; RESP 18; TEMP 36.7; O2SAT 97
--- NOTE | 2022-05-17 16:43 | CHAPLAIN ---
Type of Pastoral Visit _x__ Initial Visit ___ Follow-up Visit ___ On-call Visit ___ General Patient Visit ___ Spiritual Assessment ___ Family Conference ___ Bereavement ___ Rapid Response ___ Code Blue ___ Other (describe below) Pastoral Care Referral From _x__ Patient ___ Family ___ Nurse ___ Physician ___ Air Quality Chemist ___ Route Driver ___ Other (describe below) Sacrament/Intervention _x__ Active listening ___ Anointing ___ Christian ___ Bereavement ___ Communion ___ Mar exploration ___ ___ Life review _x__ Prayer ___ Reconciliation ___ Sacrament of Sick _x__ Supportive presence ___ Wedding ___ Other (describe below) Pastoral Comments patient is welcoming of support; pt states he plans to return to [facility] as early as tonight; pt goal is to regain strength that has been lost; pt states he is relying on family and mar in God to see him through; pt welcomes presence and prayer
--- NOTE | 2022-05-17 17:49 | TREXTCAR_ITS ---
Diet Diet Order/Speech Therapy: 05/14/22 21:20 Diet: Regular - General Food consistency:: Regular Liquid Consistency:: Regular/Thin Type of Dietary Supplement:: Ensure Plus High Protein Diet Comments: 120ml chocolate ensure plus TID w/ meals Routine Orders/Code Status Suppository Type: Dulcolax 10mg Suppository Frequency: Daily PRN O2 Frequency: Continuous Keep PO Greater than or Equal to (%): 92 Routine Lab Work: CBC (in 3-5 days) Code Status: DNRCC-A (With intubation) Wound(s) boston elbows: Wound Type: Pressure Injury boston heels: Wound Type: Pressure Injury coccyx: Wound Type: Pressure Injury left big toe: Wound Type: Neuropathic/Diabetic Foot Ulcer Therapies Physical Therapy: Eval and Treat Occupational Therapy: Eval and Treat Problem/Diagnosis (1) Acute exacerbation of chronic obstructive pulmonary disease: Status: Chronic Code(s): J44.1 - Chronic obstructive pulmonary disease with (acute) exacerbation Plan 62-year-old male with a history of combined CHF, Pancoast lung tumor in right upper lobe on Keytruda, anemia, COPD, VTE who presented to [facility] 05/14/2022 with worsening dyspnea over several days with increased cough and sputum production. Admitted for AE COPD and on day of discharge was on home 2 L of O2 and did well on bronchodilators and steroids. He was incidentally noted to have a positive stool guaiac. Was noted that he had been on hospice prior to arrival. Discussed with him and he does not wish to return to hospice however when we discussed the positive FOBT and desire for aggressive interventions he declined and did not want further work-up or consultation. On day of discharge his breathing was significantly improved, remained generally weak, had no other specific complaints. #Acute hypoxia secondary to a COPD as well as underlying Pancoast lung tumor #Positive FOBT #Chronic congestive heart failure with preserved ejection fraction #Right upper lobe Pancoast tumor #History of VTE #Hypertension #elevated troponin #Severe protein calorie Allergies/Procedures Done in Hospital Allergies Iodinated Contrast Media [CT] Allergy (Verified 05/12/22 11:48) Shortness of breath Type of Care/Length of Stay Estimated LOS: Convalescent Care Less Than 30 days Type of Care Needed: Skilled Rehab Potential: Fair Prognosis: Fair Additional Orders/Day of Discharge Day of Discharge: 05/17/22 Dietary and Speech Recommendations Dietitian Recommendations/Changes: Continue liberalized regular diet and monitor need to restrict salt/sodium due to edema/CHF. Will add 120 ml chocolate ensure plus high protein TID w/ meals. Will add Parrish BID w/ medpass for wound healing. Will add 120 ml ensure plus high protein TID w/ medpass. Additional ONS as pt willing. Discharge Plan Admission Admit Date/Time: 05/14/22 19:43 Primary Reason for Your Visit: SOB and cough Attending Provider: Polly Ocasio Primary Care Provider: Maurizio Olivas Consulting Providers: Georgina Alexander ; Daniel Tobin Instructions Patient Instructions: Asthma and COPD Discharge Orders/Prescriptions Prescriptions: New losartan 50 mg Tablet 50 mg PO DAILY Qty: 0 0RF carvedilol 6.25 mg Tablet 6.25 mg PO BID Qty: 0 0RF prednisone 20 mg Tablet 40 mg PO BREAKFAST 5 Days Qty: 0 0RF Continued Eliquis 5 mg tablet 5 mg PO BID Qty: 60 0RF Rx Instructions: End date 06/12/22 oxycodone 20 mg tablet 20 mg PO Q6H PRN PRN (Reason: Pain (Scale Score 4-10)) nystatin 100,000 unit/mL Suspension 5 ml PO 4X/DAY Rx Instructions: swish and swallow Stop date 05/24/22 omeprazole 40 mg Capsule,Delayed Release(Dr/Ec) 40 mg PO DAILY aspirin 81 mg Tablet,Chewable 81 mg PO DAILY furosemide [Lasix] 20 mg Tablet 20 mg PO DAILY escitalopram oxalate 20 mg Tablet 20 mg PO DAILY duloxetine 60 mg Capsule,Delayed Release(Dr/Ec) 60 mg PO DAILY Changed ipratropium-albuterol 0.5 mg-3 mg(2.5 mg base)/3 mL Solution For Nebulization 3 ml INHALATION Q6H PRN (Reason: breathing) Qty: 180 0RF Discontinued carvedilol 3.125 mg Tablet 3.125 mg PO BID Rx Instructions: must administer with a meal/food dexamethasone 4 mg Tablet 4 mg PO BID losartan 25 mg Tablet 25 mg PO DAILY Referrals / Follow Up: Maurizio Olivas MD [Primary Care Provider] - Within 1 Week Disposition Disposition (needs filled in before D/C Order can be placed): [facility]
[2022-05-17 18:01] VITALS: BP 132/83; PULSE 110; RESP 18; TEMP 36.7; O2SAT 97
--- NOTE | 2022-05-17 18:01 | PCM.DC.SUM ---
Providers Date of Admission: 05/14/22 Date of Discharge: 05/17/22 Primary Care Physician: Dr. Maurizio Olivas MD Consultations 05/15/22 04:38 Consult: Onc/Wound/senior hydrogeologist Routine Comment: Reason for Consult:: pressure injury Comments:: to coccyx, boston. heels, and boston elbows. 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 05/14/2022 with worsening dyspnea over several days with increased cough and sputum production. Admitted for AE COPD and on day of discharge was on home 2 L of O2 and did well on bronchodilators and steroids. He was incidentally noted to have a positive stool guaiac. Was noted that he had been on hospice prior to arrival. Discussed with him and he does not wish to return to hospice however when we discussed the positive FOBT and desire for aggressive interventions he declined and did not want further work-up or consultation. On day of discharge his breathing was significantly improved, remained generally weak, had no other specific complaints. #Acute hypoxia secondary to a COPD as well as underlying Pancoast lung tumor #Positive FOBT #Chronic congestive heart failure with preserved ejection fraction #Right upper lobe Pancoast tumor #History of VTE #Hypertension #elevated troponin #Severe protein calorie Medications at Discharge Home Medications apixaban 5 mg tablet (Eliquis) 5 mg PO BID #60 tabs 05/12/22 aspirin 81 mg chewable tablet 81 mg PO DAILY heart health 05/15/22 duloxetine 60 mg capsule,delayed release 60 mg PO DAILY mental health 05/15/22 escitalopram oxalate 20 mg tablet 20 mg PO DAILY mental health 05/15/22 furosemide 20 mg tablet (Lasix) 20 mg PO DAILY edema 05/15/22 nystatin 100,000 unit/mL oral suspension 5 ml PO 4X/DAY white patches 05/15/22 omeprazole 40 mg capsule,delayed release 40 mg PO DAILY GERD 05/15/22 oxycodone 20 mg tablet 20 mg PO Q6H PRN PRN Pain (Scale Score 4-10) 05/15/22 carvedilol 6.25 mg tablet 6.25 mg PO BID #0 tabs 05/17/22 ipratropium 0.5 mg-albuterol 3 mg (2.5 mg base)/3 mL nebulization soln 3 ml inhalation Q6H PRN breathing #180 mL 05/17/22 losartan 50 mg tablet 50 mg PO DAILY #0 tabs 05/17/22 prednisone 20 mg tablet 40 mg PO BREAKFAST 5 days #0 tabs 05/17/22 Hospital Course Summary of Care Provided Minutes Spent on Discharge: 35 Hospital Course: 62-year-old male with a history of combined CHF, 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 05/14/2022 with worsening dyspnea over several days with increased cough and sputum production. Admitted for AE COPD and on day of discharge was on home 2 L of O2 and did well on bronchodilators and steroids. He was incidentally noted to have a positive stool guaiac. Was noted that he had been on hospice prior to arrival. Discussed with him and he does not wish to return to hospice however when we discussed the positive FOBT and desire for aggressive interventions he declined and did not want further work-up or consultation. On day of discharge his breathing was significantly improved, remained generally weak, had no other specific complaints. Discharge instructions as followed: DISCHARGE INSTRUCTIONS PLEASE READ ?You will be discharged on additional 5 days of prednisone 40 mg. Your medication list indicated that you may be taking dexamethasone, if you had been taking this prior to admission this can be resumed after your prednisone is discontinued ?Due to persistently elevated blood pressure your carvedilol dose was increased as was your losartan ?Would recommend using your duo nebs 4 times daily and slowly transitioning back to as needed ?Continue your other home medications as prescribed -Please call your primary care provider's office upon discharge to schedule a hospital follow up within 1 week. -For any concerning signs or symptoms please call 911 or proceed to the nearest emergency department Physical Exam Narrative General: Alert, oriented HEENT: Atraumatic, normocephalic Eyes: Anicteric, normal conjunctiva, extraocular movements grossly intact Neck: Supple Respiratory: Somewhat coarse at the bases, normal respiratory effort Cardiovascular: Regular rate and rhythm GI: Soft, nontender, nondistended Extremities: No edema Musculoskeletal: Moving all extremities but diffusely weak Neuro: No overt focal neurological deficits Skin: No rashes appreciated Psych: Cooperative Medical Records Data Medical Nutrition Assessment Dietitian: Malnutrition Criteria Met Start: 05/15/22 13:52 Freq: Status: Active Protocol: Document 05/15/22 13:52 RMA (Rec: 05/15/22 13:52 RMA [id number]) Nutrition Malnutrition Evidence of Malnutrition Exists Yes Malnutrition (severe): Chronic Evidenced By Suboptimal Energy Intake ( Severe),Weight Loss (Severe), Physical Changes (Severe) Intake Problem Inadequate Energy Intake Etiology related to increased energy expenditure and inadequate oral intake Signs/Symptoms as evidenced by unintentional wt loss greater than 20% x 1 year Status Active Problem Clinical Problem Chronic Disease or Condition Related Malnutrition Etiology Severe protein-calorie malnutrition in the context of chronic disease and debility related to increased energy expenditure and inadequate energy intake Signs/Symptoms as evidenced by 21% wt loss x 1 year, BMI 15.9, severe muscle/fat loss and wasting in the clavicle, arms, orbital region and PO meeting less than 50% estimated nutrition needs x 6 months Status Active Problem Recommendation Dietitian Recommendations/Changes Continue liberalized regular diet and monitor need to restrict salt/sodium due to edema/CHF. Will add 120 ml chocolate ensure plus high protein TID w / meals. Will add Parrish BID w/ medpass for wound healing. Will add 120 ml ensure plus high protein TID w/ medpass. Additional ONS as pt willing. Weight / BMI Weight Weight: 49.3 kg Body Mass Index (BMI) 15.7 ABG / Lab / Microbiology Data Result Diagrams: 05/15/22 05:25 05/15/22 05:25 Laboratory: Laboratory Results - last 24 hr 05/15/22 05:25: Vitamin B12 1138 H Microbiology: Microbiology 05/17/22 14:15 Nasal Secretion SARS-CoV-2 Antigen (Rapid) - Final 05/16/22 09:32 Stool Stool Occult Blood (RAKESH) - Final Occult Blood Positive 05/14/22 20:10 Mucosa - Nasopharyngeal Respiratory Panel (PCR) - Final 05/14/22 17:15 Nasal Secretion SARS-CoV-2 & FLU Antigen (Rapid) - Final D/C Instructions Discharge Diet: - (Cardiac diet) Discharge Activity: - (PT/OT evaluation) Meaningful Use Info Meaningful Use Diagnoses (Choose all that apply): None applicable Discharge Plan Admission Admit Date/Time: 05/14/22 19:43 Primary Reason for Your Visit: SOB and cough Attending Provider: Polly Ocasio Primary Care Provider: Maurizio Olivas Consulting Providers: Georgina Alexander ; Daniel Tobin Instructions Patient Instructions: Asthma and COPD Additional Instructions / Restrictions: DISCHARGE INSTRUCTIONS PLEASE READ ?You will be discharged on additional 5 days of prednisone 40 mg. Your medication list indicated that you may be taking dexamethasone, if you had been taking this prior to admission this can be resumed after your prednisone is discontinued ?Due to persistently elevated blood pressure your carvedilol dose was increased as was your losartan ?Would recommend using your duo nebs 4 times daily and slowly transitioning back to as needed ?Continue your other home medications as prescribed -Please call your primary care provider's office upon discharge to schedule a hospital follow up within 1 week. -For any concerning signs or symptoms please call 911 or proceed to the nearest emergency department Discharge Orders/Prescriptions Prescriptions: New losartan 50 mg Tablet 50 mg PO DAILY Qty: 0 0RF carvedilol 6.25 mg Tablet 6.25 mg PO BID Qty: 0 0RF prednisone 20 mg Tablet 40 mg PO BREAKFAST 5 Days Qty: 0 0RF Continued Eliquis 5 mg tablet 5 mg PO BID Qty: 60 0RF Rx Instructions: End date 06/12/22 oxycodone 20 mg tablet 20 mg PO Q6H PRN PRN (Reason: Pain (Scale Score 4-10)) nystatin 100,000 unit/mL Suspension 5 ml PO 4X/DAY Rx Instructions: swish and swallow Stop date 05/24/22 omeprazole 40 mg Capsule,Delayed Release(Dr/Ec) 40 mg PO DAILY aspirin 81 mg Tablet,Chewable 81 mg PO DAILY furosemide [Lasix] 20 mg Tablet 20 mg PO DAILY escitalopram oxalate 20 mg Tablet 20 mg PO DAILY duloxetine 60 mg Capsule,Delayed Release(Dr/Ec) 60 mg PO DAILY Changed ipratropium-albuterol 0.5 mg-3 mg(2.5 mg base)/3 mL Solution For Nebulization 3 ml INHALATION Q6H PRN (Reason: breathing) Qty: 180 0RF Discontinued carvedilol 3.125 mg Tablet 3.125 mg PO BID Rx Instructions: must administer with a meal/food dexamethasone 4 mg Tablet 4 mg PO BID losartan 25 mg Tablet 25 mg PO DAILY Referrals / Follow Up: Maurizio Olivas MD [Primary Care Provider] - Within 1 Week Disposition Disposition (needs filled in before D/C Order can be placed): [facility] Facility Charges/Coding Visit Charges Inpatient E&M: 54235 Disch Hosp >30min
--- NOTE | 2022-05-17 18:02 | NURSING ---
I spoke with Patrice nixon's brother to inform him of pt's d/c.
--- NOTE | 2022-05-17 18:03 | NURSING ---
I spoke Mally with at [facility] to let her know pt is being d/c and the transport p/u time is 1829.
--- NOTE | 2022-05-17 18:16 | NURSING ---
Report called to Nurse Bal for pt to be transferred to [facility]
== END 2022-05-17 18:27 | disposition skilled nursing facility (03) | DRG 190 ==
LOC: ED 19:20 → PCU 20:14
PROVIDERS: Admitting Provider Family Medicine; Emergency Provider Emergency Medicine; PCP Family Medicine; Visit Provider Internal Medicine
DX: J44.1 Chronic obstructive pulmonary disease with (acute) exacerbation (principal); E43 Unspecified severe protein-calorie malnutrition; I50.33 Acute on chronic diastolic (congestive) heart failure; J96.11 Chronic respiratory failure with hypoxia; E87.20 Acidosis, unspecified; C34.11 Malignant neoplasm of upper lobe, right bronchus or lung; Z68.1 Body mass index [BMI] 19.9 or less, adult; D63.0 Anemia in neoplastic disease; I11.0 Hypertensive heart disease with heart failure; E78.5 Hyperlipidemia, unspecified; R19.5 Other fecal abnormalities; F41.9 Anxiety disorder, unspecified; F32.A Depression, unspecified; R77.8 Other specified abnormalities of plasma proteins; R73.9 Hyperglycemia, unspecified; Z99.81 Dependence on supplemental oxygen; Z79.01 Long term (current) use of anticoagulants; Z79.82 Long term (current) use of aspirin; Z79.899 Other long term (current) drug therapy; Z86.718 Personal history of other venous thrombosis and embolism; Z87.891 Personal history of nicotine dependence; Z86.73 Personal history of transient ischemic attack (TIA), and cerebral infarction without residual deficits; Z66 Do not resuscitate
CPT/HCPCS: 36415; 36600; 71045; 80048; 80053; 82274; 82607; 82728; 82746; 82803; 82962; 83036; 83540; 83550; 83605; 83735; 83880; 84100; 84145; 84484; 85025; 87040; 87426; 87428; 87633; 93005; 94640; 94668; 94762; 97110; 97162; 97166; 97530; 97535; 97802; 99252; 99285; 99406; A4216; G0463

== ENCOUNTER 2022-05-31 10:36 | Emergency (ER) | payer MEDICARE, SELFPAY ==
[2022-05-31 10:37] VITALS: BP 136/86; PULSE 89; RESP 18; TEMP 35.6; O2SAT 97; BMI 16.8
--- NOTE | 2022-05-31 10:57 | EDS_ITS ---
HPI History of Present Illness Chief Complaint: Lower Extremity Injury Informant: patient, EMS and SNF Narrative Narrative: 62-year-old male who has been in rehab for couple months due to debility, he has lung cancer that has been chronic, and he states he has not walked in months. He has been having edema in his legs for weeks, he states they have been giving him Lasix to help get it off and it has been helping, and his feet have been painful. He has had some blisters form, with rehab and therapy, some of the blisters have broken open and leak clear fluid, there is some bruising, he is on Eliquis. He states he had a blood clot in his arm at 1 point had a stroke in the past that gave him weakness in his right upper extremity. No history of blood clots in the legs or lungs. He has COPD has chronic dyspnea with exertion, he states that his mild dyspnea has been no worse than usual lately and he denies any chest pain, lightheadedness, syncope, palpitations or other systemic symptoms right now. He has not been bleeding from anywhere. Apparently, when nurses checked on him about 2.5-3 hours ago, his feet looked mottled and they did not look like that earlier. The patient states they hurt but that is not new. States they feel cold. Patient states he is interested in hospice, he states he just wants to be comfortable. He wants have more discussions with his family who were not present. States he is taking oxycodone 20 mg every 4-6 hours, it helps a little but does not take his pain away, which is mostly in his legs and feet. [facility] Medical History Anemia Anxiety and depression Chronic respiratory failure with hypoxia Combined systolic and diastolic heart failure COPD (chronic obstructive pulmonary disease) Elevated troponin Former tobacco use History of deep vein thrombosis HLD (hyperlipidemia) Hypertension Irregular heart rhythm Pancoast tumor of right lung Severe protein-calorie malnutrition Transient ischemic attack Home Medications apixaban 5 mg tablet (Eliquis) 5 mg PO BID #60 tabs 05/12/22 [Rx Last Taken Unknown] aspirin 81 mg chewable tablet 81 mg PO DAILY heart health 05/15/22 [History Last Taken Unknown] duloxetine 60 mg capsule,delayed release 60 mg PO DAILY mental health 05/15/22 [History Last Taken Unknown] escitalopram oxalate 20 mg tablet 20 mg PO DAILY mental health 05/15/22 [History Last Taken Unknown] furosemide 20 mg tablet (Lasix) 20 mg PO DAILY edema 05/15/22 [History Last Taken Unknown] nystatin 100,000 unit/mL oral suspension 5 ml PO 4X/DAY white patches 05/15/22 [History Last Taken Unknown] omeprazole 40 mg capsule,delayed release 40 mg PO DAILY GERD 05/15/22 [History Last Taken Unknown] oxycodone 20 mg tablet 20 mg PO Q6H PRN PRN Pain (Scale Score 4-10) 05/15/22 [History Last Taken Unknown] carvedilol 6.25 mg tablet 6.25 mg PO BID #0 tabs 05/17/22 [Rx Last Taken Unknown] ipratropium 0.5 mg-albuterol 3 mg (2.5 mg base)/3 mL nebulization soln 3 ml inhalation Q6H PRN breathing #180 mL 05/17/22 [Rx Last Taken Unknown] losartan 50 mg tablet 50 mg PO DAILY #0 tabs 05/17/22 [Rx Last Taken Unknown] prednisone 20 mg tablet 40 mg PO BREAKFAST 5 days #0 tabs 05/17/22 [Rx Last Taken Unknown] Allergy/AdvReac Type Severity Reaction Status Date / Time Iodinated Contrast Media [CT] Allergy Shortness Verified 05/12/22 11:48 of breath Family History (Updated 05/14/22 @ 20:[address] Georgina Alexander MD) Mother Anxiety and depression Hypertension Father Hypertension Surgical History (Updated 05/14/22 @ 20:[address] Georgina Alexander MD) No history of previous surgery Social History housing: skilled nursing Smoking Status: Former smoker how long ago did patient quit smoking: Quit with prolonged recent hospitalization 03/2022, smoked teen 1 ppd. alcohol intake: never substance use type: does not use ROS ROS ED Constitutional Constitutional ED: Reports fatigue; Denies chills or fever(s) Eyes Eyes: Denies change in vision or diplopia ENT ENT ED: Denies rhinorrhea or sore throat Cardiovascular Cardiovascular: Denies chest pain, palpitations, racing heartbeat or syncope Respiratory/Chest Respiratory/Chest: Reports dyspnea on exertion; Denies cough Gastrointestinal Gastrointestinal: Denies abdominal pain, diarrhea, nausea or vomiting Genitourinary Genitourinary ED: Denies dysuria or hematuria Musculoskeletal Musculoskeletal: Reports as per HPI and extremity pain; Denies back pain or neck pain Integumentary Denies abscess or rash Neurologic Neurologic: Denies headache(s), paresthesias or weakness Psychiatric Psychiatric: Denies anxiety or suicidal thoughts EXAM Physical Exam Const Vital Signs: 05/31/22 10:37 05/31/22 14:22 Temperature 96.1 F L Temperature Source Temporal Pulse Rate 89 94 Respiratory Rate 18 20 H Blood Pressure 136/86 H 142/85 H Blood Pressure Mean 102 104 Pulse Ox 97 95 Oxygen Delivery Method Nasal Cannula Nasal Cannula Oxygen Flow Rate (L/min) 4 4 Positive well nourished and well developed Constitutional Narrative: Alert and oriented, conversive in full sentences General Appearance ED: well developed and NAD HEENT Reports moist mucous membranes normocephalic and atraumatic Eyes PERRL and EOMs intact bilaterally Neck full ROM and supple Resp normal respiratory effort and clear to auscultation bilaterally Resp Narrative: Diminished throughout the distress Cardio regular rate, regular rhythm and no murmurs GI non-tender and non-distended Auscultation: normoactive bowel sounds Palpation: soft Back/Spine no CVA tenderness General Back: other FROM Extremity Extremity Narrative: Tender throughout both feet. Tenderness is nonfocal. He has a couple of blisters that are also tender but no more than the other areas, some are ecchymotic, there is no active bleeding or discharge, no evidence of an abscess. He has some erythema on the peroneal aspect of his left foot, again no more tender than the others and well-circumscribed, possibly tinea. No discharge. His feet are edematous in the dorsums, the toes or not, the feet and toes do appear mottled and feel cool, but there are brisk cap refills all toes, and palpable dorsalis pedis pulses bilaterally. His legs are not edematous, he has full range of motion of the joints without pain, his calves are nontender, there is no palpable cords, there is no significant asymmetry in either of the feet with regards to the edema, and all compartments of both lower extremities are soft and nondistended. General Extremety ED: Yes tenderness; Negative for edema or pulses abnormal General Extremity: Negative for edema or pulses abnormal Neuro oriented x3, CN's II-XII intact bilaterally and no sensory deficits noted Sensorium / Orientation: awake and alert Motor Exam: strength 5/5 throughout Skin no rashes or lesions noted Skin Narrative: Superficial blisters both feet see above MDM MDM MDM Narrative Medical decision making narrative: This patient has normal vital signs, palpable, good perfusion to all toes although they feel little cool. I do not see any sign of infection. He has some blisters that are tender, they appear to be mechanical and not due to infection, there is no subcutaneous emphysema, he has symmetric edema in both feet, unilateral vascular process unlikely. I discussed with Dr. Olivas, he agrees with sending the patient back, and we had a hospice eval in the emergency department. We discussed testing and considered it, however we both agree that it would not necessarily change the disposition right now. The patient states to the hospice personnel that he still wants to be intubated if he should needed, so they declined to admit him to hospice which is understandable. At this time he will be discharged back and I did send pictures to Dr. Olivas of his feet for him to see, he is in agreement with all of this. Discharge Plan Triage Chief Complaint: Lower Extremity Injury ED Provider: Quique Chawla Dx/Rx/DC Orders Clinical Impression: Bilateral swelling of feet, Lung cancer, Anticoagulated Instructions: ED Peripheral Edema, Bilateral Prescriptions: No Action Eliquis 5 mg tablet 5 mg PO BID Qty: 60 0RF Rx Instructions: End date 06/12/22 oxycodone 20 mg tablet 20 mg PO Q6H PRN PRN (Reason: Pain (Scale Score 4-10)) nystatin 100,000 unit/mL Suspension 5 ml PO 4X/DAY Rx Instructions: swish and swallow Stop date 05/24/22 omeprazole 40 mg Capsule,Delayed Release(Dr/Ec) 40 mg PO DAILY aspirin 81 mg Tablet,Chewable 81 mg PO DAILY furosemide [Lasix] 20 mg Tablet 20 mg PO DAILY escitalopram oxalate 20 mg Tablet 20 mg PO DAILY duloxetine 60 mg Capsule,Delayed Release(Dr/Ec) 60 mg PO DAILY losartan 50 mg Tablet 50 mg PO DAILY Qty: 0 0RF carvedilol 6.25 mg Tablet 6.25 mg PO BID Qty: 0 0RF prednisone 20 mg Tablet 40 mg PO BREAKFAST 5 Days Qty: 0 0RF ipratropium-albuterol 0.5 mg-3 mg(2.5 mg base)/3 mL Solution For Nebulization 3 ml INHALATION Q6H PRN (Reason: breathing) Qty: 180 0RF Primary Care Provider: Maurizio Olivas Referrals: Maurizio Olivas MD [Primary Care Provider] - 2 Days Disposition Disposition: Home, Self Care Discharge Date/Time: 05/31/22 15:01
--- NOTE | 2022-05-31 11:25 | NURSING ---
CALLED [facility], ETA IS 30 MIN
--- NOTE | 2022-05-31 12:15 | NURSING ---
HOSPICE HERE WITH PATIENT
--- NOTE | 2022-05-31 14:13 | CM.ED ---
Per Ana Maria from Hospice. Patient wants to be intubated if it is needed thus he will not be hospice appropriate per Ana Maria. Patient is already is linked with palliative care. Per Ana Maria [facility] can [facility] back [facility]. Cassie SCHAFFER
--- NOTE | 2022-05-31 14:18 | NURSING ---
CALLED [facility], ETA IS 30 MIN
[2022-05-31 14:22] VITALS: BP 142/85; PULSE 94; RESP 20; O2SAT 95
--- NOTE | 2022-05-31 14:23 | ED.RN ---
called Mally at [facility] to inform of pt's return
== END 2022-05-31 15:01 | disposition home or self-care (01) ==
PROVIDERS: Emergency Provider Emergency Medicine; PCP Family Medicine; Visit Provider Emergency Medicine
DX: M79.89 Other specified soft tissue disorders (principal); C34.90 Malignant neoplasm of unspecified part of unspecified bronchus or lung; I50.42 Chronic combined systolic (congestive) and diastolic (congestive) heart failure; Z87.891 Personal history of nicotine dependence; Z79.01 Long term (current) use of anticoagulants
CPT/HCPCS: 99284